=== PATIENT | male | born 1975 | race Two or more races ===

== ENCOUNTER 2020-07-10 18:41 | Inpatient (IN) | payer BC ==
[~2020-07-10] VITALS: Ht 175.3 cm; Wt 83.1 kg
[2020-07-10] MEDS ORDERED: propofol 1000mg/100ml bottle 100 ML IV ONE (18:46)
--- NOTE | 2020-07-10 19:10 | NUR ---
CALLED [facility] AND THEY STATE PT HAS NO ALLERGIES.
[2020-07-10 19:15] LABS: ABG BASE EXCESS 4.7 mmol/L (-2.0-2.0); ABG HCO3 31.6 mmol/L (22.0-26.0); ABG PCO2 (T) 56.9 mmHg (35.0-48.0); ABG PO2 (T) 66.2 mmHg (75.0-100.0); ALLEN'S TEST POSITIVE; FCOHb 0.4 % (0.0-3.9); FMetHb 0.3 % (0.0-1.5); FO2Hb 91.4 % (94-97); PEEP 9 cm H2O; RESPIRATORY RATE 16 b/min; TOTAL HEMOGLOBIN 13.2 G/dl (14.0-18.0)
[2020-07-10] MEDS ORDERED: propofol 1000mg/100ml bottle 100 ML IV SCH (19:15)
[2020-07-10] MEDS ORDERED: iohexol 350MG/ML 100ml bottle IV ONE (19:16)
[2020-07-10 19:22] LABS: BASOPHILS # (AUTO) 0.2 X10'3 (0-0.2); EOSINOPHILS # (AUTO) 0.1 X10'3 (0-0.9); EOSINOPHILS % (AUTO) 0.5 % (0-6); HEMATOCRIT 37.2 % (42.0-52.0); HEMOGLOBIN 12.5 g/dl (14.0-17.9); LYMPHOCYTES # (AUTO) 0.7 X10'3 (1.1-4.8); LYMPHOCYTES % (AUTO) 4.2 % (21-51); MEAN CORPUSCULAR HEMOGLOBIN 31.1 PG (27.0-31.0); MEAN CORPUSCULAR HGB CONC 33.5 g/dL (33.0-36.5); MEAN CORPUSCULAR VOLUME 92.9 FL (78-98); MEAN PLATELET VOLUME 7.5 FL (7.4-10.4); MONOCYTES # (AUTO) 0.8 X10'3 (0-0.9); MONOCYTES % (AUTO) 5.1 % (2-12); NEUTROPHILS # (AUTO) 14.3 X10'3 (1.8-7.7); NEUTROPHILS % (AUTO) 89.2 % (42-75); PLATELET COUNT 272 X10'3 (140-440); RED BLOOD COUNT 4.01 X10'6 (4.70-6.10); RED CELL DISTRIBUTION WIDTH 12.8 % (11.5-14.5); WHITE BLOOD COUNT 16.1 X10'3 (4.5-11.0)
--- NOTE | 2020-07-10 19:30 | NUR ---
NG TUBE PLACEMENT CHECKED BY AIR AUSCULTATION. POSITIVE PLACEMENT. NG TUBE SECURED.
[2020-07-10 19:40] LABS: ALANINE AMINOTRANSFERASE 47 U/L (12-78); ALBUMIN 2.6 G/DL (3.4-5.0); ALBUMIN/GLOBULIN RATIO 0.5 (1.1-1.5); ALKALINE PHOSPHATASE 109 IU/L (46-116); ANION GAP 6 (8-16); ASPARTATE AMINO TRANSFERASE 25 U/L (10-37); BILIRUBIN,TOTAL 0.3 MG/DL (0.1-1.0); BLOOD UREA NITROGEN 12 MG/DL (7-18); BUN/CREATININE RATIO 16.7 (5.4-32.0); CALCIUM 8.4 MG/DL (8.5-10.1); CHLORIDE 97 MMOL/L (99-107); CREATININE 0.72 MG/DL (0.60-1.10); GLUCOSE 161 MG/DL (70-104); POTASSIUM 3.6 MMOL/L (3.5-5.1); SODIUM 138 MMOL/L (135-145); TOTAL CARBON DIOXIDE 35.1 MMOL/L (24-32); eGFR > 90 ML/MIN
[2020-07-10] MEDS ORDERED: acetaminophen 325mg rectal suppository RC ONE (19:40)
--- NOTE | 2020-07-10 19:45 | NUR ---
PATIENT TO CT WITH RN, RESPIRATORY, MANAGER RETAIL STORE AND BP, HR, SPO2 MONITORING.
--- NOTE | 2020-07-10 19:56 | NUR ---
med dose corrected with pharmacy for tylenol. corrected order 325mg.
[2020-07-10] MEDS ORDERED: magnesium hydroxide 30ml (MOM) UD suspension PO PRN (20:00)
[2020-07-10] MEDS ORDERED: ondansetron/PF 4mg/2ml inj IV PRN (20:00)
[2020-07-10] MEDS ORDERED: mag hydrox/Alum hydrox/simeth 30ml oral suspension PO PRN (20:00)
--- NOTE | 2020-07-10 20:06 | NUR ---
PT JUST RETURNED FROM CTA OF CHEST AND ABD AND PELVIS. BLADDER TEMP 102.4, DR. GALVAN AWARE AND ORDERING TYLENOL RECTAL.
[2020-07-10 20:12] LABS: CLARITY,URINE CLEAR (Clear); COLOR,URINE GREEN (Yellow); GLUCOSE, URINE NEGATIVE (Neg); KETONES,URINE 40 mg/dl (Neg); LEUKOCYTE ESTERASE ,URINE TRACE (Neg); NITRITES, URINE NEGATIVE (Neg); OCCULT BLOOD,URINE LARGE (Neg); PROTEIN,URINE 30 mg/dl (Neg); UROBILINOGEN,URINE 0.2 E.U/dL (0.2-1.0)
[2020-07-10 20:23] LABS: UA COLLECTION TYPE NON-SPECIFIED
[2020-07-10] MEDS ORDERED: potassium Cl 20 mEq SR tablet PO PRN ×2 (20:25)
[2020-07-10] MEDS ORDERED: potassium CL 10mEq/100ml bag 100 ML IV PRN ×2 (20:25)
[2020-07-10 20:28] LABS: URINE AMPHETAMINE SCREEN NEGATIVE (Neg); URINE BARBITUATE SCREEN NEGATIVE (Neg); URINE BENZODIAZEPINES SCREEN POSITIVE (Neg); URINE CANNABINOID SCREEN NEGATIVE (Neg); URINE COCAINE SCREEN NEGATIVE (Neg); URINE METHADONE SCREEN POSITIVE (Neg); URINE OPIATE SCREEN NEGATIVE (Neg); URINE PHENCYCLIDINE SCREEN NEGATIVE (Neg)
[2020-07-10 20:30] LABS: SQUAMOUS EPITHELIAL CELL,UR FEW /LPF (FEW)
[2020-07-10 20:31] LABS: BACTERIA,URINE 1+ /HPF (Neg); RBC,URINE TNTC /HPF (0-2)
[2020-07-10] MEDS ORDERED: METH5TAB2 PO (20:32)
[2020-07-10] MEDS ORDERED: CHLO10CA6 GT (20:32)
[2020-07-10] MEDS ORDERED: ALBU8.5H8 IH (20:32)
[2020-07-10] MEDS ORDERED: INSU100V9 SQ (20:32)
[2020-07-10] MEDS ORDERED: NYST1000 PO (20:32)
[2020-07-10] MEDS ORDERED: DEXA1TAB GT (20:32)
[2020-07-10] MEDS ORDERED: INSU100C10 SQ (20:32)
[2020-07-10] MEDS ORDERED: FENT50VI IV (20:32)
[2020-07-10] MEDS ORDERED: FAMO20TA8 PO (20:32)
[2020-07-10] MEDS ORDERED: ASPI-1265 PO (20:32)
[2020-07-10] MEDS ORDERED: OXYC5CAP19 PO (20:32)
[2020-07-10] MEDS ORDERED: PROP10VI (20:32)
[2020-07-10] MEDS ORDERED: DEXM400I (20:32)
[2020-07-10] MEDS ORDERED: ENOX40SY7 SUBCUT (20:32)
[2020-07-10] MEDS ORDERED: ATRIN IH (20:32)
[2020-07-10] MEDS ORDERED: APR20I IV (20:32)
[2020-07-10] MEDS ORDERED: CYCL-1 PO (20:32)
[2020-07-10] MEDS ORDERED: OXYC10TA47 PO (20:32)
[2020-07-10] MEDS ORDERED: DOCU-195 PO (20:32)
[2020-07-10] MEDS ORDERED: ZINC220C11 PO (20:32)
[2020-07-10] MEDS: DEXMEDETOMIDINE 400MCG in NORMAL SALINE 100ml IV SCH (20:55)
[2020-07-10] MEDS: vancomycin 125mg/5ml ORAL solution 5ml UD bottle PO SCH (20:58)
[2020-07-10] MEDS: normal saline 1000ml 1,000 ML IV SCH (21:00)
[2020-07-10] MEDS: FENTANYL-0.9 % NACL/PF 100 ML IV PRN (21:20)
[2020-07-10] MEDS: midazolam 2 mg/2 ml injection IV PRN (21:22)
--- NOTE | 2020-07-10 21:23 | NUR ---
PER TRANSFER PAPERWORK: COVID + ON 06/01, COVID CLEAR ON 06/23/20 PSEUDAMONAS PNEUMONIA. AT FACILITY ON PROPOFOL, PRECEDEX DRIP, WITH FENT AND VERSED IVP. NG TUBE FEEDING VITAL AT 40. OXY IR METHADONE, ZOFRAN, HYDRALAZINE IVP MECH VENT 70% BP AT FACILITY 200/117, HR 144, OXYGEN 92%
--- NOTE | 2020-07-10 21:38 | NUR ---
1000MCG FENTANYL DRIP AND 2MG VERSED PUSH PULLED AND GIVEN TO PRIMARY RN - PRIMARY RN UNABLE TO PULL MEDICATION SECONDARY TO ISOLATION PRECAUTIONS.
--- NOTE | 2020-07-10 21:48 | NUR ---
talked with Savana about inability to sedate patient adequately. Discussed current medications with md, including precedex at 0.6 mcg/kg/hr, propofol 75 mcg/kg/min which he arrived at, fentanyl drip, and versed bolus. per md, continue current drips and add versed drip and titrate.
[2020-07-10 22:09] LABS: TOTAL CELLS COUNTED 100
[2020-07-10] MEDS: midazolam 100mg in NS 100ml 100 ML IV PRN (22:10)
[2020-07-10] MEDS: propofol 1000mg/100ml bottle 100 ML IV SCH ×2 (22:15→23:11)
--- NOTE | 2020-07-10 22:16 | NUR ---
PT STARTED ON VERSED GTT AT 5 MCG, PT CONTINUES ON PROPOFOL GTT AT 75 MCG/KG/MIN. PT HAS BEEN AWAKENING AND OPENING EYES AND MOVING LIMBS, GIVEN A 2ND DOSE OF VERSED 2 MG IV JUST PRIOR TO STARTING VERSED GTT AND PT NOW CALM. BP 111/75, CONTINUES WITH TACHYCARDIA 120-125, ST, NO ECTOPY. TRACH SUCTIONED AND MINIMAL OUTPUT, BUT RIGHT UPPER LUNG WITH IMPROVEMENT IN COARSE BREATH SOUNDS. VENT RR AT 16, FIO2 60%, PEEP 9, PT HAS BEEN OVERBREATING THE VENT THE ENTIRETY OF HIS STAY HERE. OVERBREATING AT 30-34 MIN . OTHER DRIPS: FENTANYL, PRECEDEX, NS AT 100
--- NOTE | 2020-07-10 23:45 | NUR ---
REPORT GIVEN TO MILADIS RUIZ CICU. IPA [id number].
[2020-07-11] VITALS (32 sets, daily range): BP systolic 82–131; BP diastolic 45–78
--- NOTE | 2020-07-11 | NUR ---
Patient in room CICU 2008. I have received report from young duffy and had the opportunity to ask questions and assume patient care.
[2020-07-11] MEDS: metroNIDAZOLE-Flagyl 500mg/NS 100 ML IV SCH ×2 (00:46→07:26)
--- NOTE | 2020-07-11 01:00 | NUR ---
pt had a fever of 38.5 on arrival to icu. pt given Tylenol in the er. pt room temp turned down, fan in pt room, ice packs placed at pt neck, armpits, and groin.
[2020-07-11 01:11] LABS: PLATELET ESTIMATE NORMAL
[2020-07-11 01:17] LABS: LARGE PLATELETS FEW; POLYCHROMASIA FEW; SPHEROCYTES FEW; STOMATOCYTES 1+
[2020-07-11] MEDS: propofol 1000mg/100ml bottle 100 ML IV SCH ×4 (01:28→20:47)
[2020-07-11] MEDS ORDERED: methylPREDNISolone sod succ 125mg/2ml vial IV ONE (02:00)
[2020-07-11] MEDS: vancomycin 125mg/5ml ORAL solution 5ml UD bottle PO SCH ×4 (02:18→20:47)
[2020-07-11 03:06] LABS: BASOPHILS # (AUTO) 0.1 X10'3 (0-0.2); BASOPHILS % (AUTO) 0.4 % (0-1); EOSINOPHILS # (AUTO) 0.1 X10'3 (0-0.9); EOSINOPHILS % (AUTO) 0.6 % (0-6); HEMOGLOBIN 11.3 g/dl (14.0-17.9); LYMPHOCYTES # (AUTO) 1.4 X10'3 (1.1-4.8); LYMPHOCYTES % (AUTO) 8.1 % (21-51); MEAN CORPUSCULAR HEMOGLOBIN 31.2 PG (27.0-31.0); MEAN CORPUSCULAR HGB CONC 33.2 g/dL (33.0-36.5); MEAN PLATELET VOLUME 7.9 FL (7.4-10.4); MONOCYTES # (AUTO) 1.1 X10'3 (0-0.9); MONOCYTES % (AUTO) 6.2 % (2-12); NEUTROPHILS # (AUTO) 15.1 X10'3 (1.8-7.7); NEUTROPHILS % (AUTO) 84.7 % (42-75); PLATELET COUNT 248 X10'3 (140-440); RED BLOOD COUNT 3.62 X10'6 (4.70-6.10); RED CELL DISTRIBUTION WIDTH 12.8 % (11.5-14.5); WHITE BLOOD COUNT 17.9 X10'3 (4.5-11.0)
[2020-07-11 03:26] LABS: ABG BASE EXCESS 3.3 mmol/L (-2.0-2.0); ABG HCO3 31.3 mmol/L (22.0-26.0); ABG OXYGEN SATURATION 90.1 % (94-97); ABG PCO2 (T) 67.9 mmHg (35.0-48.0); ABG PO2 (T) 66.5 mmHg (75.0-100.0); FCOHb 0.2 % (0.0-3.9); FMetHb 0.2 % (0.0-1.5); FO2Hb 89.7 % (94-97); PATIENT TEMPERATURE 38.1; PEEP 9 cm H2O; RESPIRATORY RATE 16 b/min; TOTAL HEMOGLOBIN 12.3 G/dl (14.0-18.0)
[2020-07-11 03:29] LABS: ALBUMIN 2.3 G/DL (3.4-5.0); ANION GAP 5 (8-16); BLOOD UREA NITROGEN 9 MG/DL (7-18); BUN/CREATININE RATIO 16.1 (5.4-32.0); CALCIUM 8.3 MG/DL (8.5-10.1); CHLORIDE 98 MMOL/L (99-107); CREATININE 0.56 MG/DL (0.60-1.10); GLUCOSE 114 MG/DL (70-104); MAGNESIUM 1.6 MG/DL (1.5-2.4); POTASSIUM 4.5 MMOL/L (3.5-5.1); SODIUM 137 MMOL/L (135-145); TOTAL CARBON DIOXIDE 34.2 MMOL/L (24-32); TRIGLYCERIDES 225 MG/DL (20-135); eGFR > 90 ML/MIN
[2020-07-11] MEDS: acetaminophen 325mg tablet PO PRN (04:39)
[2020-07-11] MEDS: DEXMEDETOMIDINE 400MCG in NORMAL SALINE 100ml IV SCH ×2 (05:57→11:26)
[2020-07-11] MEDS: normal saline 1000ml 1,000 ML IV SCH (06:00)
--- NOTE | 2020-07-11 06:13 | NUR ---
Problems reprioritized. Patient report given, questions answered & plan of care reviewed
[2020-07-11] MEDS: pantoprazole 40 MG vial IV SCH (07:25)
[2020-07-11] MEDS: FENTANYL-0.9 % NACL/PF 100 ML IV PRN (07:25)
[2020-07-11] MEDS: enoxaparin 40mg/0.4ml syringe SUBCUT SCH (07:26)
[2020-07-11] MEDS: K and/or MAG REPLACEMENT MC SCH ×2 (08:00→20:00)
[2020-07-11] MEDS ORDERED: HYDROmorphone 1 mg/ml syringe IV PRN (09:05)
[2020-07-11] MEDS ORDERED: furosemide 40mg/4ml inj IV ONE (09:15)
[2020-07-11] MEDS ORDERED: albuterol 2.5 MG/3 ML nebule CONTNEB ONE (09:45)
[2020-07-11] MEDS: linezolid 600mg/300ml PREMIX 300 ML IV SCH ×2 (09:57→20:48)
[2020-07-11] MEDS: meropenem inj 1 GM in normal saline 100ml IV soln 100 ML IV SCH ×2 (09:57→16:30)
[2020-07-11] MEDS: NORepinephrine 8mg/ 250ml NS 250 ML IV SCH (09:59)
[2020-07-11] MEDS ORDERED: cyclobenzaprine 10mg tablet PO PRN (11:20)
[2020-07-11] MEDS ORDERED: ALBUTEROL INHALER 1 PUFF/90 MCG INHALER IH PRN (11:20)
[2020-07-11] MEDS ORDERED: ipratropium/albuterol 3ml nebule NEB PRN (11:20)
[2020-07-11] MEDS ORDERED: albuterol 2.5 MG/3 ML nebule NEB SCH (12:00)
[2020-07-11] MEDS ORDERED: non-formulary drug (Insulin Lispro (Humalog) 1 UNITS) SQ SCH (12:00)
[2020-07-11] MEDS ORDERED: dextrose 50%-water 50ml dispensing syringe IV PRN ×2 (14:15)
[2020-07-11] MEDS ORDERED: MESSAGE TO PHARMACY PO ONE (14:15)
[2020-07-11] MEDS ORDERED: glucagon, human recombinant 1mg kit SUBCUT PRN (14:15)
[2020-07-11] MEDS ORDERED: dextrose ORAL solution 15 GM/59 ML bottle PO PRN ×2 (14:15)
--- NOTE | 2020-07-11 14:36 | NUR ---
TF consult: Pt admit with sepsis and respiratory failure d/t ARDS d/t COVID. Pt mechanically ventilated with a trach, on rotobed. TF recommendations below. Pt to get diuretics per MD note, no water flush recommendations at this time. Pt receiving Linezolid, low tyramine nutrition therapy education not appropriate at this time. Per PMH pt with new dx T2DM in 2019, pending A1c results at this time. BG range 111-161 since admit. LBM 07/11 documented as a smear, pt receiving routine bowel care. Will continue to follow closely. Recommendations: 1) Continuous Vital AF via NG tube with goal rate of 80 mL/hr. To begin at 20 mL/hr and advance by 20 mL Q8H as tolerated to goal rate. To provide: 1920 mL total volume/day, 2304 kcal, 144 g protein, and 1557 mL water 2) No water flush recommendations at this time 3) Prealbumin q Tuesday/ 4) Daily weights 5) Consider post-pyloric feedings given pt on rotobed if poor TF tolerance 6) Routine bowel care 7) Low tyramine nutrition therapy education once stable if warranted 8) DM education pending A1c results if warranted Addendum: 07/11/20 at [address] Amended: Links added.
[2020-07-11] MEDS: nystatin 500,000 unit/5ML UD oral suspension PO SCH ×3 (14:48→22:45)
[2020-07-11] MEDS: methylPREDNISolone sod succ 125mg/2ml vial IV SCH ×2 (14:49→20:48)
[2020-07-11] MEDS ORDERED: MEROPENEM 1GM/NS 50ML IVPB 50 ML IV SCH (16:00)
[2020-07-11] MEDS: methadone 5mg tablet PO SCH (16:30)
[2020-07-11] MEDS: midazolam 100mg in NS 100ml 100 ML IV PRN (16:34)
[2020-07-11] MEDS: dexmedetomidine/D5W 100mL 100 ML IV SCH ×2 (17:09→20:51)
--- NOTE | 2020-07-11 17:45 | NUR ---
I have reviewed and agree with all medications administered and interventions performed by DRIER TENDER Student Panda Ziegler.
--- NOTE | 2020-07-11 18:15 | NUR ---
Patient in room CICU 2008. I have received report from LENARD RUIZ and had the opportunity to ask questions and assume patient care.
--- NOTE | 2020-07-11 19:45 | NUR ---
PT MOVED TO THE ROTOPRONE BED
[2020-07-11] MEDS: ipratropium/albuterol 3ml nebule NEB SCH ×2 (19:46→23:00)
[2020-07-11] MEDS ORDERED: docusate sod 100mg capsule PO SCH (20:00)
[2020-07-11] MEDS ORDERED: famotidine 20mg tablet PO SCH (20:00)
[2020-07-11] MEDS: mineral oil/petrolatum ophthal oint EACHEYE SCH ×2 (20:00→20:48)
[2020-07-11] MEDS: chlordiazePOXIDE 5mg capsule PO SCH (20:47)
[2020-07-11 20:58] LABS: HEMOGLOBIN A1C 7.4 % (4.5-6.2)
[2020-07-11] MEDS ORDERED: insulin glargine (Lantus) pen - multi-dose SQ SCH (21:00)
[2020-07-11] MEDS: insulin regular, human U-100 3ml vial - multi-dose SQ SCH (21:06)
[2020-07-11] MEDS: insulin glargine (Lantus) pen - multi-dose SQ SCH (21:07)
--- NOTE | 2020-07-11 22:30 | NUR ---
pt removed from cdiff isolation precautions by . pt has not had a bm.
[2020-07-12] VITALS (24 sets, daily range): BP systolic 96–146; BP diastolic 53–98
[2020-07-12] MEDS: methadone 5mg tablet PO SCH ×2 (00:30→07:14)
[2020-07-12] MEDS: methylPREDNISolone sod succ 125mg/2ml vial IV SCH ×4 (01:55→19:06)
[2020-07-12] MEDS: midazolam 100mg in NS 100ml 100 ML IV PRN ×6 (01:55→23:38)
[2020-07-12] MEDS: mineral oil/petrolatum ophthal oint EACHEYE SCH ×7 (01:56→19:05)
[2020-07-12] MEDS: propofol 1000mg/100ml bottle 100 ML IV SCH ×4 (01:56→14:19)
[2020-07-12] MEDS: insulin regular, human U-100 3ml vial - multi-dose SQ SCH ×4 (02:04→19:30)
[2020-07-12 02:50] LABS: ABG BASE EXCESS 7.5 mmol/L (-2.0-2.0); ABG HCO3 35.3 mmol/L (22.0-26.0); ABG OXYGEN SATURATION 95.9 % (94-97); ABG PCO2 (T) 68.6 mmHg (35.0-48.0); ALLEN'S TEST POSITIVE; FCOHb 0.3 % (0.0-3.9); FMetHb 0.4 % (0.0-1.5); FO2Hb 95.2 % (94-97); PATIENT TEMPERATURE 37.2; RESPIRATORY RATE 18 b/min; TOTAL HEMOGLOBIN 11.4 G/dl (14.0-18.0)
[2020-07-12] MEDS: ipratropium/albuterol 3ml nebule NEB SCH ×6 (02:51→23:07)
[2020-07-12 03:04] LABS: BASOPHILS % (AUTO) 0 % (0-1); EOSINOPHILS % (AUTO) 0 % (0-6); HEMATOCRIT 32.4 % (42.0-52.0); HEMOGLOBIN 10.7 g/dl (14.0-17.9); LYMPHOCYTES # (AUTO) 0.8 X10'3 (1.1-4.8); LYMPHOCYTES % (AUTO) 5.8 % (21-51); MEAN CORPUSCULAR HEMOGLOBIN 30.7 PG (27.0-31.0); MEAN PLATELET VOLUME 7.8 FL (7.4-10.4); MONOCYTES # (AUTO) 0.5 X10'3 (0-0.9); MONOCYTES % (AUTO) 3.7 % (2-12); NEUTROPHILS # (AUTO) 11.7 X10'3 (1.8-7.7); NEUTROPHILS % (AUTO) 90.5 % (42-75); PLATELET COUNT 251 X10'3 (140-440); RED BLOOD COUNT 3.48 X10'6 (4.70-6.10); RED CELL DISTRIBUTION WIDTH 12.8 % (11.5-14.5); WHITE BLOOD COUNT 12.9 X10'3 (4.5-11.0)
[2020-07-12 03:26] LABS: ALBUMIN 2.2 G/DL (3.4-5.0); ANION GAP -2 (8-16); BLOOD UREA NITROGEN 8 MG/DL (7-18); BUN/CREATININE RATIO 15.7 (5.4-32.0); CALCIUM 8.5 MG/DL (8.5-10.1); CHLORIDE 102 MMOL/L (99-107); CREATININE 0.51 MG/DL (0.60-1.10); GLUCOSE 223 MG/DL (70-104); POTASSIUM 4.5 MMOL/L (3.5-5.1); SODIUM 138 MMOL/L (135-145); TOTAL CARBON DIOXIDE 37.8 MMOL/L (24-32); eGFR > 90 ML/MIN
[2020-07-12] MEDS: dexmedetomidine/D5W 100mL 100 ML IV SCH ×7 (05:19→23:38)
[2020-07-12] MEDS: nystatin 500,000 unit/5ML UD oral suspension PO SCH ×5 (05:21→21:03)
[2020-07-12] MEDS: chlordiazePOXIDE 5mg capsule PO SCH ×2 (07:14→20:47)
[2020-07-12] MEDS: docusate sodium 100mg/10ml UD cup OGT SCH ×2 (07:14→19:06)
[2020-07-12] MEDS: dexamethasone 1mg tablet PO SCH (07:14)
[2020-07-12] MEDS: zinc sulfate 220mg capsule PO SCH (07:14)
[2020-07-12] MEDS: ciprofloxacin 250mg tablet NG SCH ×2 (07:15→19:06)
[2020-07-12] MEDS: aspirin 81mg tab.chew PO SCH (07:15)
[2020-07-12] MEDS: enoxaparin 40mg/0.4ml syringe SUBCUT SCH (07:16)
[2020-07-12] MEDS: linezolid 600mg/300ml PREMIX 300 ML IV SCH (07:16)
[2020-07-12] MEDS: pantoprazole 40 MG vial IV SCH (07:16)
[2020-07-12 07:32] LABS: HIV ANTIBODY 1&2 RAPID NON-REACTIVE (Neg)
[2020-07-12] MEDS: K and/or MAG REPLACEMENT MC SCH ×2 (08:00→18:35)
[2020-07-12] MEDS ORDERED: enoxaparin 40mg/0.4ml syringe SUBCUT SCH (08:00)
--- NOTE | 2020-07-12 09:00 | NUR ---
Dr. Reyes rounding on patient. Aware we are starting Nimbex drip and aware of low tidal volumes around 300. also okay with pCO2 in the 60s. Will continue supportive care with roto-prone.
[2020-07-12] MEDS: CISatracurium besylate inj. 100 MG in normal saline 100ml IV soln 90 ML IV PRN ×4 (09:34→21:49)
--- NOTE | 2020-07-12 09:41 | NUR ---
Pt with A1c 7.4%, DM education deferred at this time as pt remains mechanically ventilated. Will continue to follow. Addendum: 07/12/20 at [address] Amended: Links added.
[2020-07-12] MEDS ORDERED: ondansetron 4mg rapidly disintigrating tab PO PRN (11:40)
[2020-07-12] MEDS ORDERED: vancomycin/NS ADD-VANTAGE 1,000 MG/250 ML BAG IV SCH (13:30)
[2020-07-12] MEDS: vancomycin/NS 1 GM ADD-VANTAGE 250 ML IV SCH ×2 (14:10→21:03)
[2020-07-12] MEDS: FENTANYL-0.9 % NACL/PF 100 ML IV PRN (14:10)
[2020-07-12] MEDS: NORepinephrine 8mg/ 250ml NS 250 ML IV SCH (15:27)
--- NOTE | 2020-07-12 18:09 | NUR ---
Problems reprioritized. Patient report given, questions answered & plan of care reviewed with Rcah RUIZ.
--- NOTE | 2020-07-12 18:10 | NUR ---
Patient in room CICU 2008. I have received report from prisca duffy and had the opportunity to ask questions and assume patient care.
[2020-07-12] MEDS: lactobacillus rhamnosus 10,000 MMU CELLS/CAPSULE NG SCH (19:06)
[2020-07-12] MEDS: insulin glargine (Lantus) pen - multi-dose SQ SCH (20:48)
--- NOTE | 2020-07-12 21:00 | NUR ---
rotoprone weighs pt at 126.4 kg which is a discrepancy to the [place] bed.
--- NOTE | 2020-07-12 22:38 | NUR ---
pt has BIS monitor on. Changed leads on BIS monitor. BIS monitor says wrong sensor type. only one type of sensor for BIS monitor in hospital and same sensor that was just changed out. BIS monitor not functioning properly. will continue to monitor
[2020-07-13] VITALS (23 sets, daily range): BP systolic 93–181; BP diastolic 48–105
[2020-07-13] MEDS: FENTANYL-0.9 % NACL/PF 100 ML IV PRN ×3 (00:23→22:52)
[2020-07-13] MEDS: methylPREDNISolone sod succ 125mg/2ml vial IV SCH ×4 (01:11→19:08)
[2020-07-13] MEDS: mineral oil/petrolatum ophthal oint EACHEYE SCH ×4 (01:11→19:08)
[2020-07-13] MEDS: insulin regular, human U-100 3ml vial - multi-dose SQ SCH ×4 (01:16→21:26)
[2020-07-13] MEDS: dexmedetomidine/D5W 100mL 100 ML IV SCH ×5 (02:19→23:36)
[2020-07-13] MEDS: midazolam 100mg in NS 100ml 100 ML IV PRN ×5 (02:20→23:56)
[2020-07-13] MEDS: CISatracurium besylate inj. 100 MG in normal saline 100ml IV soln 90 ML IV PRN ×7 (03:03→23:01)
[2020-07-13 03:10] LABS: BASOPHILS % (AUTO) 0 % (0-1); EOSINOPHILS % (AUTO) 0 % (0-6); HEMATOCRIT 30.9 % (42.0-52.0); HEMOGLOBIN 9.7 g/dl (14.0-17.9); LYMPHOCYTES # (AUTO) 0.8 X10'3 (1.1-4.8); LYMPHOCYTES % (AUTO) 5.7 % (21-51); MEAN CORPUSCULAR HEMOGLOBIN 30.4 PG (27.0-31.0); MEAN CORPUSCULAR HGB CONC 31.4 g/dL (33.0-36.5); MEAN CORPUSCULAR VOLUME 96.6 FL (78-98); MEAN PLATELET VOLUME 8.4 FL (7.4-10.4); MONOCYTES # (AUTO) 0.7 X10'3 (0-0.9); MONOCYTES % (AUTO) 5.3 % (2-12); NEUTROPHILS # (AUTO) 12.1 X10'3 (1.8-7.7); PLATELET COUNT 178 X10'3 (140-440); RED CELL DISTRIBUTION WIDTH 12.7 % (11.5-14.5); WHITE BLOOD COUNT 13.6 X10'3 (4.5-11.0)
[2020-07-13 03:14] LABS: ALBUMIN 2.2 G/DL (3.4-5.0); ANION GAP -3 (8-16); BLOOD UREA NITROGEN 11 MG/DL (7-18); BUN/CREATININE RATIO 22.9 (5.4-32.0); CALCIUM 7.8 MG/DL (8.5-10.1); CHLORIDE 103 MMOL/L (99-107); CREATININE 0.48 MG/DL (0.60-1.10); GLUCOSE 180 MG/DL (70-104); MAGNESIUM 2.1 MG/DL (1.5-2.4); POTASSIUM 4.9 MMOL/L (3.5-5.1); SODIUM 143 MMOL/L (135-145); eGFR > 90 ML/MIN
[2020-07-13 03:33] LABS: TOTAL CARBON DIOXIDE 42.7 MMOL/L (24-32)
[2020-07-13] MEDS: ipratropium/albuterol 3ml nebule NEB SCH ×6 (03:34→23:10)
[2020-07-13] MEDS: vancomycin/NS 1 GM ADD-VANTAGE 250 ML IV SCH ×3 (04:42→19:08)
[2020-07-13] MEDS: nystatin 500,000 unit/5ML UD oral suspension PO SCH ×5 (05:33→21:27)
[2020-07-13 06:20] LABS: ABG BASE EXCESS 11.5 mmol/L (-2.0-2.0); ABG HCO3 44.9 mmol/L (22.0-26.0); ABG OXYGEN SATURATION 97.4 % (94-97); ABG PCO2 (T) 138.9 mmHg (35.0-48.0); ABG PO2 (T) 101.7 mmHg (75.0-100.0); ALLEN'S TEST POSITIVE; FCOHb 0.3 % (0.0-3.9); FMetHb 0.3 % (0.0-1.5); FO2Hb 96.8 % (94-97); PATIENT TEMPERATURE 36.5; PEEP 10 cm H2O; RESPIRATORY RATE 18 b/min; TOTAL HEMOGLOBIN 10.9 G/dl (14.0-18.0)
--- NOTE | 2020-07-13 06:30 | NUR ---
Patient in room CICU 2008. I have received report from SARA Loyd and had the opportunity to ask questions and assume patient care.
[2020-07-13] MEDS: pantoprazole 40 MG vial IV SCH (07:33)
[2020-07-13] MEDS: zinc sulfate 220mg capsule PO SCH (07:34)
[2020-07-13] MEDS: ciprofloxacin 250mg tablet NG SCH ×2 (07:34→19:08)
[2020-07-13] MEDS: aspirin 81mg tab.chew PO SCH (07:34)
[2020-07-13] MEDS: chlordiazePOXIDE 5mg capsule PO SCH ×2 (07:34→19:09)
[2020-07-13] MEDS: lactobacillus rhamnosus 10,000 MMU CELLS/CAPSULE NG SCH ×2 (07:34→19:09)
[2020-07-13] MEDS: docusate sodium 100mg/10ml UD cup OGT SCH ×2 (07:35→19:10)
[2020-07-13] MEDS: enoxaparin 40mg/0.4ml syringe SUBCUT SCH (07:35)
[2020-07-13] MEDS: dexamethasone 1mg tablet PO SCH (07:40)
[2020-07-13] MEDS: K and/or MAG REPLACEMENT MC SCH ×2 (08:51→19:10)
[2020-07-13 12:15] LABS: ABG BASE EXCESS 15.5 mmol/L (-2.0-2.0); ABG HCO3 44.9 mmol/L (22.0-26.0); ABG OXYGEN SATURATION 97.9 % (94-97); ABG PCO2 (T) 88.8 mmHg (35.0-48.0); ABG PO2 (T) 100.8 mmHg (75.0-100.0); FCOHb 0.3 % (0.0-3.9); FMetHb 0.3 % (0.0-1.5); FO2Hb 97.3 % (94-97); PEEP 10 cm H2O; RESPIRATORY RATE 24 b/min; TIDAL VOLUME 400 mL
--- NOTE | 2020-07-13 12:37 | NUR ---
Alf Consult: Alf 10; skin intact. Pt tolerating TF at goal GRV WNL. LBM 07/11; smear receiving routine colace. Noted 37.3kg wt gain past 24 hours likely error on rotoprone bed; FRANKLIN d/w clinical pharmacist in case receiving wt-based meds. Written DM ed w/ RD contact information placed in pt chart since not appropriate for ed at this time. Zyvox has been stopped per MD note. Will continue to monitor. Recommendations: 1) Continuous Vital AF via NG tube with goal rate of 80 mL/hr. To begin at 20 mL/hr and advance by 20 mL Q8H as tolerated to goal rate. To provide: 1920 mL total volume/day, 2304 kcal, 144 g protein, and 1557 mL water 2) additional water flush per wax pourer 3) Prealbumin q Tuesday/; Daily weights 4) Consider post-pyloric feedings given pt on rotoprone if poor TF tolerance 5) Routine bowel care Addendum: 07/13/20 at [address] Amended: Links added.
[2020-07-13] MEDS ORDERED: VANCOMYCIN LEVEL IV ONE (13:00)
--- NOTE | 2020-07-13 14:30 | NUR ---
Pt unable to tolerate prone position. Getting inadequate volumes and desaturating. He is hypertensive with a bounding pulse as well. Dr Reyes called. Orders received CXR, ABG, D/C decadron. Pt to remain in supine position.
[2020-07-13 16:51] LABS: ABG BASE EXCESS 18.3 mmol/L (-2.0-2.0); ABG HCO3 49.3 mmol/L (22.0-26.0); ABG OXYGEN SATURATION 95.4 % (94-97); ABG PCO2 (T) 101.5 mmHg (35.0-48.0); ABG PO2 (T) 73.2 mmHg (75.0-100.0); ALLEN'S TEST POSITIVE; FCOHb 0.2 % (0.0-3.9); FMetHb 0.2 % (0.0-1.5); PEEP 10 cm H2O; RESPIRATORY RATE 24 b/min; TIDAL VOLUME 372 mL; TOTAL HEMOGLOBIN 12.2 G/dl (14.0-18.0)
--- NOTE | 2020-07-13 18:03 | NUR ---
Problems reprioritized. Patient report given, questions answered & plan of care reviewed with SARA Loyd.
--- NOTE | 2020-07-13 18:05 | NUR ---
Patient in room CICU 2008. I have received report from sadia duffy and had the opportunity to ask questions and assume patient care.
--- NOTE | 2020-07-13 20:30 | NUR ---
pt tolerating supine position well. spoke to applications support specialist ophelia about trying to prone pt because pt was not tolerating it on day shift to see if there is an improvement. applications support specialist approved to prone pt
[2020-07-13] MEDS: niCARDipine-NS 40mg/200ml IVPB 250 ML IV SCH (20:33)
--- NOTE | 2020-07-13 21:00 | NUR ---
pt placed in prone position, sedation increased, pt tolerating prone position at this time, will continue to monitor.
[2020-07-13] MEDS: NORepinephrine 8mg/ 250ml NS 250 ML IV SCH (21:09)
[2020-07-13] MEDS: insulin glargine (Lantus) pen - multi-dose SQ SCH (21:27)
--- NOTE | 2020-07-13 22:00 | NUR ---
pt respiratory rate increased. pt overbreathing the vent. nimbex and sedation increased. pt producing copious bloody secretions, pt suctioned. spoke to director inpatient headache program about sedation being increased, propofol restarted on pt for added sedation per protocol. will continue to monitor.
[2020-07-13] MEDS: propofol 1000mg/100ml bottle 100 ML IV SCH (22:01)
--- NOTE | 2020-07-13 22:30 | NUR ---
pt continues to be increased with nimbex on max dose, sedation increased. analytics specialist ophelia at bedside to evaluate pt. pt HR began to increased to 130's. pt no longer tolerating prone position. pt returned to supine position, HR and respiratory rate started decreasing, pt tolerating supine position. began titrating down sedation and nimbex. new order for lasix received.
--- NOTE | 2020-07-13 22:30 | NUR ---
pt tolerating supine position well. spoke to zuleyma jacinto about trying to prone pt because pt was not tolerating it on day shift to see if there is an improvement. supervisor felling bucking approved to prone pt Addendum: 07/14/20 at 0112 by Rach Goins RN error incorrect time, correct time 2030
[2020-07-13] MEDS ORDERED: furosemide 40mg/4ml inj IV ONE (22:50)
[2020-07-14] VITALS (29 sets, daily range): BP systolic 87–158; BP diastolic 51–104
[2020-07-14] MEDS: niCARDipine-NS 40mg/200ml IVPB 250 ML IV SCH ×5 (00:20→22:17)
[2020-07-14] MEDS: CISatracurium besylate inj. 100 MG in normal saline 100ml IV soln 90 ML IV PRN ×8 (01:54→22:42)
[2020-07-14] MEDS: vancomycin/NS 1 GM ADD-VANTAGE 250 ML IV SCH ×2 (02:06→07:23)
[2020-07-14] MEDS: methylPREDNISolone sod succ 125mg/2ml vial IV SCH ×4 (02:06→20:19)
[2020-07-14] MEDS: mineral oil/petrolatum ophthal oint EACHEYE SCH ×4 (02:07→20:19)
[2020-07-14] MEDS: insulin regular, human U-100 3ml vial - multi-dose SQ SCH ×4 (02:12→19:58)
[2020-07-14] MEDS: ipratropium/albuterol 3ml nebule NEB SCH ×6 (03:01→23:13)
[2020-07-14 03:14] LABS: BASOPHILS % (AUTO) 0.1 % (0-1); EOSINOPHILS % (AUTO) 0 % (0-6); HEMATOCRIT 30.7 % (42.0-52.0); HEMOGLOBIN 9.8 g/dl (14.0-17.9); LYMPHOCYTES # (AUTO) 1.3 X10'3 (1.1-4.8); LYMPHOCYTES % (AUTO) 8.7 % (21-51); MEAN CORPUSCULAR HEMOGLOBIN 30.5 PG (27.0-31.0); MEAN CORPUSCULAR HGB CONC 32.1 g/dL (33.0-36.5); MEAN CORPUSCULAR VOLUME 94.9 FL (78-98); MEAN PLATELET VOLUME 7.6 FL (7.4-10.4); MONOCYTES # (AUTO) 0.9 X10'3 (0-0.9); MONOCYTES % (AUTO) 6.1 % (2-12); NEUTROPHILS # (AUTO) 12.7 X10'3 (1.8-7.7); NEUTROPHILS % (AUTO) 85.1 % (42-75); PLATELET COUNT 241 X10'3 (140-440); RED BLOOD COUNT 3.23 X10'6 (4.70-6.10); RED CELL DISTRIBUTION WIDTH 12.7 % (11.5-14.5); WHITE BLOOD COUNT 14.9 X10'3 (4.5-11.0)
[2020-07-14 03:16] LABS: ABG BASE EXCESS 17.6 mmol/L (-2.0-2.0); ABG HCO3 44.2 mmol/L (22.0-26.0); ABG OXYGEN SATURATION 97.5 % (94-97); ABG PCO2 (T) 64.6 mmHg (35.0-48.0); ALLEN'S TEST POSITIVE; FCOHb 0.3 % (0.0-3.9); FMetHb 0.2 % (0.0-1.5); PATIENT TEMPERATURE 37.9; PEEP 10 cm H2O; RESPIRATORY RATE 28 b/min; TOTAL HEMOGLOBIN 11.9 G/dl (14.0-18.0)
[2020-07-14 03:23] LABS: ALBUMIN 2.4 G/DL (3.4-5.0); ANION GAP -2 (8-16); BLOOD UREA NITROGEN 20 MG/DL (7-18); BUN/CREATININE RATIO 32.8 (5.4-32.0); CALCIUM 8.3 MG/DL (8.5-10.1); CHLORIDE 100 MMOL/L (99-107); CREATININE 0.61 MG/DL (0.60-1.10); GLUCOSE 278 MG/DL (70-104); MAGNESIUM 2.1 MG/DL (1.5-2.4); POTASSIUM 3.7 MMOL/L (3.5-5.1); PREALBUMIN 17.4 MG/DL (19-36); SODIUM 142 MMOL/L (135-145); eGFR > 90 ML/MIN
[2020-07-14 03:24] LABS: TOTAL CARBON DIOXIDE 43.6 MMOL/L (24-32)
[2020-07-14] MEDS: FENTANYL-0.9 % NACL/PF 100 ML IV PRN ×5 (04:14→22:14)
[2020-07-14] MEDS: midazolam 100mg in NS 100ml 100 ML IV PRN ×4 (04:53→21:59)
[2020-07-14] MEDS: dexmedetomidine/D5W 100mL 100 ML IV SCH ×2 (05:17→10:53)
[2020-07-14] MEDS: nystatin 500,000 unit/5ML UD oral suspension PO SCH ×5 (05:17→22:49)
--- NOTE | 2020-07-14 06:30 | NUR ---
Patient in room CICU 2008. I have received report from SARA Loyd and had the opportunity to ask questions and assume patient care.
[2020-07-14] MEDS: ciprofloxacin 250mg tablet NG SCH ×2 (07:21→20:16)
[2020-07-14] MEDS: docusate sodium 100mg/10ml UD cup OGT SCH ×2 (07:22→20:16)
[2020-07-14] MEDS: lactobacillus rhamnosus 10,000 MMU CELLS/CAPSULE NG SCH ×2 (07:22→20:16)
[2020-07-14] MEDS: aspirin 81mg tab.chew PO SCH (07:22)
[2020-07-14] MEDS: chlordiazePOXIDE 5mg capsule PO SCH ×2 (07:22→20:19)
[2020-07-14] MEDS: zinc sulfate 220mg capsule PO SCH (07:22)
[2020-07-14] MEDS: pantoprazole 40 MG vial IV SCH (07:22)
[2020-07-14] MEDS: enoxaparin 40mg/0.4ml syringe SUBCUT SCH (07:23)
[2020-07-14] MEDS ORDERED: MESSAGE TO NURSING IV ONE (07:30)
[2020-07-14] MEDS: K and/or MAG REPLACEMENT MC SCH ×2 (08:00→20:00)
[2020-07-14] MEDS: propofol 1000mg/100ml bottle 100 ML IV SCH (08:46)
[2020-07-14] MEDS: acetaminophen 325mg tablet PO PRN ×2 (10:52→22:47)
[2020-07-14] MEDS: labetalol 20mg/4ml (5mg/ml) syringe IV PRN ×2 (16:22→23:48)
--- NOTE | 2020-07-14 16:30 | NUR ---
Pt hypertensive and tachycardic with bounding pulse. Dr. Rasmussen in to round on pt. labetolol 20 mg IVP ordered q4h prn. Lasix and aldactone added. Received instructions to try and ween pt FIO2 to 40%, keep supine.
[2020-07-14 17:20] LABS: ABG HCO3 36.5 mmol/L (22.0-26.0); ABG OXYGEN SATURATION 94.2 % (94-97); ABG PCO2 (T) 46.2 mmHg (35.0-48.0); ABG PO2 (T) 60.7 mmHg (75.0-100.0); ALLEN'S TEST POSITIVE; FCOHb 0.3 % (0.0-3.9); FMetHb 0.2 % (0.0-1.5); FO2Hb 93.7 % (94-97); PEEP 5 cm H2O; RESPIRATORY RATE 28 b/min; TIDAL VOLUME 420 mL; TOTAL HEMOGLOBIN 13.4 G/dl (14.0-18.0)
--- NOTE | 2020-07-14 17:50 | NUR ---
Ro. Nimbex not delivered paused. Nimbex line has run dry and next Nimbex bag has not been delivered.
--- NOTE | 2020-07-14 18:18 | NUR ---
Problems reprioritized. Patient report given, questions answered & plan of care reviewed with [SARA Archer].
[2020-07-14] MEDS: insulin glargine (Lantus) pen - multi-dose SQ SCH (19:55)
[2020-07-14] MEDS: spironolactone 25 MG tablet PO SCH (20:29)
[2020-07-15] VITALS (58 sets, daily range): BP systolic 93–164; BP diastolic 47–108
[2020-07-15] MEDS: CISatracurium besylate inj. 100 MG in normal saline 100ml IV soln 90 ML IV PRN ×5 (01:45→11:18)
[2020-07-15] MEDS: methylPREDNISolone sod succ 125mg/2ml vial IV SCH ×4 (02:21→20:21)
[2020-07-15 02:24] LABS: BASOPHILS # (AUTO) 0.1 X10'3 (0-0.2); BASOPHILS % (AUTO) 0.7 % (0-1); EOSINOPHILS % (AUTO) 0 % (0-6); HEMATOCRIT 33.5 % (42.0-52.0); HEMOGLOBIN 10.8 g/dl (14.0-17.9); LYMPHOCYTES # (AUTO) 1.2 X10'3 (1.1-4.8); LYMPHOCYTES % (AUTO) 8.8 % (21-51); MEAN CORPUSCULAR HEMOGLOBIN 30.1 PG (27.0-31.0); MEAN CORPUSCULAR HGB CONC 32.2 g/dL (33.0-36.5); MEAN CORPUSCULAR VOLUME 93.5 FL (78-98); MEAN PLATELET VOLUME 7.3 FL (7.4-10.4); MONOCYTES # (AUTO) 0.6 X10'3 (0-0.9); MONOCYTES % (AUTO) 4.2 % (2-12); NEUTROPHILS # (AUTO) 11.7 X10'3 (1.8-7.7); NEUTROPHILS % (AUTO) 86.3 % (42-75); PLATELET COUNT 282 X10'3 (140-440); RED BLOOD COUNT 3.58 X10'6 (4.70-6.10); WHITE BLOOD COUNT 13.6 X10'3 (4.5-11.0)
[2020-07-15 02:39] LABS: ALBUMIN 2.6 G/DL (3.4-5.0); ANION GAP 3 (8-16); BLOOD UREA NITROGEN 21 MG/DL (7-18); BUN/CREATININE RATIO 31.8 (5.4-32.0); CALCIUM 8.3 MG/DL (8.5-10.1); CHLORIDE 102 MMOL/L (99-107); CREATININE 0.66 MG/DL (0.60-1.10); GLUCOSE 277 MG/DL (70-104); MAGNESIUM 2.1 MG/DL (1.5-2.4); POTASSIUM 3.7 MMOL/L (3.5-5.1); SODIUM 141 MMOL/L (135-145); TOTAL CARBON DIOXIDE 35.9 MMOL/L (24-32); eGFR > 90 ML/MIN
[2020-07-15] MEDS: FENTANYL-0.9 % NACL/PF 100 ML IV PRN ×7 (02:39→23:23)
[2020-07-15] MEDS: insulin regular, human U-100 3ml vial - multi-dose SQ SCH ×4 (02:43→19:45)
[2020-07-15] MEDS: mineral oil/petrolatum ophthal oint EACHEYE SCH ×4 (02:44→19:27)
[2020-07-15 03:11] LABS: ABG BASE EXCESS 8.1 mmol/L (-2.0-2.0); ABG HCO3 32.7 mmol/L (22.0-26.0); ABG PCO2 (T) 47.5 mmHg (35.0-48.0); ABG PO2 (T) 70.1 mmHg (75.0-100.0); ALLEN'S TEST POSITIVE; FCOHb 0.3 % (0.0-3.9); FMetHb 0.3 % (0.0-1.5); FO2Hb 94.4 % (94-97); PATIENT TEMPERATURE 37.9; RESPIRATORY RATE 28 b/min; TOTAL HEMOGLOBIN 12.2 G/dl (14.0-18.0)
[2020-07-15] MEDS: ipratropium/albuterol 3ml nebule NEB SCH ×6 (03:35→23:02)
--- NOTE | 2020-07-15 03:45 | NUR ---
Left upper arm PICC line dressing changed. PICC line at 13cm. Line required larger tegaderm 10cm x 12 cm and central line occlusive dressing to cover length. Sterile technique observed. Bio patch applied prior to tegaderm.
[2020-07-15] MEDS: midazolam 100mg in NS 100ml 100 ML IV PRN ×4 (04:30→23:48)
[2020-07-15] MEDS: labetalol 20mg/4ml (5mg/ml) syringe IV PRN ×2 (05:54→13:14)
[2020-07-15] MEDS: nystatin 500,000 unit/5ML UD oral suspension PO SCH ×5 (06:09→22:10)
--- NOTE | 2020-07-15 06:14 | NUR ---
Problems reprioritized. Patient report given, questions answered & plan of care reviewed.
[2020-07-15] MEDS: aspirin 81mg tab.chew PO SCH (07:27)
[2020-07-15] MEDS: ciprofloxacin 250mg tablet NG SCH ×2 (07:27→19:29)
[2020-07-15] MEDS: chlordiazePOXIDE 5mg capsule PO SCH ×2 (07:27→20:21)
[2020-07-15] MEDS: spironolactone 25 MG tablet PO SCH ×2 (07:27→19:30)
[2020-07-15] MEDS: furosemide 40mg/4ml inj IV SCH (07:28)
[2020-07-15] MEDS: pantoprazole 40 MG vial IV SCH (07:28)
[2020-07-15] MEDS: docusate sodium 100mg/10ml UD cup OGT SCH ×2 (07:28→19:27)
[2020-07-15] MEDS: lactobacillus rhamnosus 10,000 MMU CELLS/CAPSULE NG SCH ×2 (07:28→19:29)
[2020-07-15] MEDS: enoxaparin 40mg/0.4ml syringe SUBCUT SCH (07:29)
[2020-07-15] MEDS: K and/or MAG REPLACEMENT MC SCH ×2 (08:00→18:55)
[2020-07-15] MEDS: propofol 1000mg/100ml bottle 100 ML IV SCH ×3 (08:42→14:44)
--- NOTE | 2020-07-15 10:59 | NUR ---
Reassessment: Pt remains intubated and tolerating TF with GRV WNL. LBM 07/13 documented as small. Pt receiving routine bowel care. Would benefit from opioid antagonist to assist with bowel regularity. Will continue to follow closely. Recommendations: 1) Continuous Vital AF via NG tube with goal rate of 80 mL/hr. To begin at 20 mL/hr and advance by 20 mL Q8H as tolerated to goal rate. To provide: 1920 mL total volume/day, 2304 kcal, 144 g protein, and 1557 mL water 2) additional water flush per c wpf developer 3) Prealbumin q Tuesday/; Daily weights 4) Consider post-pyloric feedings given pt on rotoprone if poor TF tolerance 5) Routine bowel care Addendum: 07/15/20 at [address] Amended: Links added.
[2020-07-15] MEDS: acetaminophen 325mg tablet PO PRN ×2 (16:08→21:56)
--- NOTE | 2020-07-15 18:11 | NUR ---
Patient in room CICU 2008. I have received report from Wilber RUIZ and had the opportunity to ask questions and assume patient care.Pt remains on vent via #8Shiley trach, cuffed. On A/C PC mode FIO2 45% + 10 PEEP tV 487-500. Oxygen saturation is 94%. Rhythm is sinus rhythm 96-107. Sedated on Fentanyl/propofol /versed drips. Remains supine on rotoprone bed in side to side rotational mode. [place] sump tube left nares with enteric feedings Vital AF at goal rate 80ml/hr. Left upper arm dual lumen PICC line is patent. Rectal tube with harvest brown colored loose stool. Pizano cath with scant amount of clear yellow urine along tubing.
--- NOTE | 2020-07-15 18:11 | NUR ---
Problems reprioritized. Patient report given, questions answered & plan of care reviewed with SARA Archer.
[2020-07-15] MEDS: dexmedetomidine/D5W 100mL 100 ML IV SCH (18:52)
[2020-07-15] MEDS: insulin glargine (Lantus) pen - multi-dose SQ SCH (19:43)
--- NOTE | 2020-07-15 21:30 | NUR ---
Cooling measures taken ice packs to axilla & cool wash cloth to head. Oral temp 38, bladder temp 38.4
--- NOTE | 2020-07-15 23:00 | NUR ---
Fresh ICe packs for temp. 38.4
[2020-07-16] VITALS (46 sets, daily range): BP systolic 78–144; BP diastolic 41–106
[2020-07-16] MEDS: mineral oil/petrolatum ophthal oint EACHEYE SCH ×4 (01:42→19:58)
[2020-07-16] MEDS: insulin regular, human U-100 3ml vial - multi-dose SQ SCH ×4 (01:51→20:11)
--- NOTE | 2020-07-16 02:00 | NUR ---
Ice packs changed.
[2020-07-16] MEDS: niCARDipine-NS 40mg/200ml IVPB 250 ML IV SCH ×3 (02:20→22:20)
[2020-07-16] MEDS: FENTANYL-0.9 % NACL/PF 100 ML IV PRN ×7 (02:51→23:16)
[2020-07-16] MEDS: propofol 1000mg/100ml bottle 100 ML IV SCH ×2 (02:52→22:15)
[2020-07-16] MEDS: methylPREDNISolone sod succ 125mg/2ml vial IV SCH ×4 (02:58→19:44)
[2020-07-16] MEDS: ipratropium/albuterol 3ml nebule NEB SCH ×6 (03:26→23:32)
[2020-07-16 03:41] LABS: ABG BASE EXCESS 3.5 mmol/L (-2.0-2.0); ABG HCO3 26.2 mmol/L (22.0-26.0); ABG OXYGEN SATURATION 93.8 % (94-97); ABG PCO2 (T) 35.1 mmHg (35.0-48.0); ABG PO2 (T) 66.3 mmHg (75.0-100.0); ALLEN'S TEST POSITIVE; FCOHb 0.3 % (0.0-3.9); FMetHb 0.1 % (0.0-1.5); FO2Hb 93.4 % (94-97); PATIENT TEMPERATURE 38.2; PEEP 10 cm H2O; RESPIRATORY RATE 28 b/min; TOTAL HEMOGLOBIN 12.4 G/dl (14.0-18.0)
[2020-07-16 03:42] LABS: BASOPHILS % (AUTO) 0.2 % (0-1); EOSINOPHILS % (AUTO) 0 % (0-6); HEMATOCRIT 35.7 % (42.0-52.0); HEMOGLOBIN 11.6 g/dl (14.0-17.9); LYMPHOCYTES # (AUTO) 1.6 X10'3 (1.1-4.8); LYMPHOCYTES % (AUTO) 9.9 % (21-51); MEAN CORPUSCULAR HEMOGLOBIN 30.2 PG (27.0-31.0); MEAN CORPUSCULAR HGB CONC 32.5 g/dL (33.0-36.5); MEAN CORPUSCULAR VOLUME 93.1 FL (78-98); MEAN PLATELET VOLUME 7.8 FL (7.4-10.4); MONOCYTES # (AUTO) 0.7 X10'3 (0-0.9); MONOCYTES % (AUTO) 4.5 % (2-12); NEUTROPHILS # (AUTO) 13.6 X10'3 (1.8-7.7); NEUTROPHILS % (AUTO) 85.4 % (42-75); PLATELET COUNT 320 X10'3 (140-440); RED BLOOD COUNT 3.83 X10'6 (4.70-6.10); RED CELL DISTRIBUTION WIDTH 13.3 % (11.5-14.5)
[2020-07-16 03:56] LABS: ALBUMIN 2.7 G/DL (3.4-5.0); ANION GAP 7 (8-16); BLOOD UREA NITROGEN 33 MG/DL (7-18); BUN/CREATININE RATIO 46.5 (5.4-32.0); CALCIUM 8.4 MG/DL (8.5-10.1); CHLORIDE 104 MMOL/L (99-107); CREATININE 0.71 MG/DL (0.60-1.10); GLUCOSE 321 MG/DL (70-104); MAGNESIUM 2.2 MG/DL (1.5-2.4); PHOSPHORUS 1.5 MG/DL (2.3-4.5); POTASSIUM 3.7 MMOL/L (3.5-5.1); SODIUM 143 MMOL/L (135-145); TOTAL CARBON DIOXIDE 32.5 MMOL/L (24-32); eGFR > 90 ML/MIN
[2020-07-16] MEDS: midazolam 100mg in NS 100ml 100 ML IV PRN ×4 (05:07→22:25)
[2020-07-16] MEDS: dexmedetomidine/D5W 100mL 100 ML IV SCH ×2 (05:45→16:38)
[2020-07-16] MEDS: acetaminophen 325mg tablet PO PRN (05:59)
[2020-07-16] MEDS: nystatin 500,000 unit/5ML UD oral suspension PO SCH ×5 (05:59→22:34)
--- NOTE | 2020-07-16 06:02 | NUR ---
Tylenol given for temp 38.5, Fresh Ice packs applied to bilateral axilla.
--- NOTE | 2020-07-16 06:24 | NUR ---
Problems reprioritized. Patient report given, questions answered & plan of care reviewed.
--- NOTE | 2020-07-16 06:30 | NUR ---
Patient in room CICU 2008. I have received report from Dallas Rogers and had the opportunity to ask questions and assume patient care. Patient on rotoprone bed on the rotorest setting, ventilated via trach fio2 45% peep of 10 sating 94-97%, fentanyl, versed and propofol infusing to L upper arm picc, peters and rectal tube draining to gravity. vital signs stable no signs or symptoms of distress will continue to monitor
[2020-07-16] MEDS: furosemide 40mg/4ml inj IV SCH (07:42)
[2020-07-16] MEDS: pantoprazole 40 MG vial IV SCH (07:42)
[2020-07-16] MEDS: aspirin 81mg tab.chew PO SCH (07:44)
[2020-07-16] MEDS: lactobacillus rhamnosus 10,000 MMU CELLS/CAPSULE NG SCH ×2 (07:44→19:44)
[2020-07-16] MEDS: ciprofloxacin 250mg tablet NG SCH ×2 (07:44→19:43)
[2020-07-16] MEDS: spironolactone 25 MG tablet PO SCH ×2 (07:44→19:44)
[2020-07-16] MEDS: chlordiazePOXIDE 5mg capsule PO SCH ×2 (07:44→19:59)
[2020-07-16] MEDS: enoxaparin 40mg/0.4ml syringe SUBCUT SCH (07:45)
[2020-07-16] MEDS: docusate sodium 100mg/10ml UD cup OGT SCH ×2 (07:46→19:44)
[2020-07-16] MEDS: K and/or MAG REPLACEMENT MC SCH ×2 (08:00→20:00)
--- NOTE | 2020-07-16 11:12 | NUR ---
Rounds note, Per Dr. Hopkins move patient to a regular pulmonary bed that has rotation assist, enter electrolyte replacement protocol, add CBC with mandif for 5 days, have Infectious Disease MD evaluate his current ABX regimen
[2020-07-16] MEDS ORDERED: sodium phosphate inj. 15 MMOL in dextrose 5%-water 250 ML IV ONE (12:00)
[2020-07-16] MEDS ORDERED: sodium phosphate inj. 30 MMOL in dextrose 5%-water 250 ML IV PRN (12:15)
[2020-07-16] MEDS ORDERED: sodium phosphate inj. 15 MMOL in dextrose 5%-water 250 ML IV PRN (12:15)
[2020-07-16] MEDS ORDERED: magnesium 4gm in 100ml NS 100 ML IV PRN (12:15)
[2020-07-16] MEDS ORDERED: magnesium 2GM in 50ml NS 50 ML IV PRN (12:15)
--- NOTE | 2020-07-16 13:30 | NUR ---
called [facility] to clarify wether or not patient had Cdiff while at their facility, Per Cleve in medical records it was suspected and the test was ordered but never completed due to patient being transferred to our facility
--- NOTE | 2020-07-16 16:30 | NUR ---
Patient transferred to pulmonary bed from rotoprone bed with q10 min 45 degree later rotation per dr prescott. Lines secured and air way maintained. vital signs stable no signs or symptoms of distress
--- NOTE | 2020-07-16 18:08 | NUR ---
Problems reprioritized. Patient report given, questions answered & plan of care reviewed with Suzi Rogers.
--- NOTE | 2020-07-16 18:08 | NUR ---
Patient in room CICU 2008. I have received report from Lucia RUIZ and had the opportunity to ask questions and assume patient care. Pt is now on debbie pulmonary bed. Remains on vent via #8 Shiley tracheostomy. On A/C PC mode FIO2 45% rate 26 TV +10 PEEP. Observed TV 500, RR 26 with oxygen saturation 96%. Pt is sedated on fentabyl/versed & propofol drips. IV left upper arm PICC line @ 13cm, dressing dated 07/15/20. Left nares [place] sump tube with enteric feedings Vital AF @ goal rate 80ml/hr. Rectal bag with harvest gold colored liquid stool, CDiff is pending. Pt is in contact isolation. Pizano drains yellow urine with white sediment along tubing. Bladder temp 37.7. No distress at shift change.
[2020-07-16] MEDS: insulin glargine (Lantus) pen - multi-dose SQ SCH (20:07)
[2020-07-17] VITALS (28 sets, daily range): BP systolic 94–131; BP diastolic 47–87
[2020-07-17] MEDS: insulin regular, human U-100 3ml vial - multi-dose SQ SCH ×4 (01:55→19:47)
[2020-07-17] MEDS: mineral oil/petrolatum ophthal oint EACHEYE SCH ×4 (01:55→20:09)
[2020-07-17] MEDS: midazolam 100mg in NS 100ml 100 ML IV PRN ×3 (02:18→21:14)
[2020-07-17] MEDS: FENTANYL-0.9 % NACL/PF 100 ML IV PRN ×4 (02:37→16:15)
[2020-07-17] MEDS: methylPREDNISolone sod succ 125mg/2ml vial IV SCH ×2 (02:38→07:19)
[2020-07-17 02:44] LABS: BASOPHILS # (AUTO) 0.1 X10'3 (0-0.2); BASOPHILS % (AUTO) 0.3 % (0-1); EOSINOPHILS % (AUTO) 0 % (0-6); LYMPHOCYTES # (AUTO) 2.3 X10'3 (1.1-4.8); LYMPHOCYTES % (AUTO) 10.5 % (21-51); MEAN CORPUSCULAR HEMOGLOBIN 30.2 PG (27.0-31.0); MEAN CORPUSCULAR HGB CONC 32.5 g/dL (33.0-36.5); MEAN CORPUSCULAR VOLUME 92.9 FL (78-98); MONOCYTES # (AUTO) 1.2 X10'3 (0-0.9); MONOCYTES % (AUTO) 5.8 % (2-12); NEUTROPHILS # (AUTO) 17.9 X10'3 (1.8-7.7); NEUTROPHILS % (AUTO) 83.4 % (42-75); PLATELET COUNT 290 X10'3 (140-440); RED BLOOD COUNT 3.98 X10'6 (4.70-6.10); RED CELL DISTRIBUTION WIDTH 13.3 % (11.5-14.5); WHITE BLOOD COUNT 21.5 X10'3 (4.5-11.0)
[2020-07-17 03:02] LABS: ALANINE AMINOTRANSFERASE 161 U/L (12-78); ALBUMIN 2.5 G/DL (3.4-5.0); ALBUMIN/GLOBULIN RATIO 0.6 (1.1-1.5); ALKALINE PHOSPHATASE 75 IU/L (46-116); ANION GAP 5 (8-16); ASPARTATE AMINO TRANSFERASE 34 U/L (10-37); BILIRUBIN,TOTAL 0.5 MG/DL (0.1-1.0); BLOOD UREA NITROGEN 32 MG/DL (7-18); BUN/CREATININE RATIO 59.3 (5.4-32.0); C-REACTIVE PROTEIN 0.29 MG/DL (0.0-0.5); CALCIUM 8.6 MG/DL (8.5-10.1); CHLORIDE 110 MMOL/L (99-107); CREATININE 0.54 MG/DL (0.60-1.10); GLUCOSE 142 MG/DL (70-104); PHOSPHORUS 3.4 MG/DL (2.3-4.5); POTASSIUM 3.4 MMOL/L (3.5-5.1); PREALBUMIN 37.3 MG/DL (19-36); SODIUM 147 MMOL/L (135-145); TOTAL CARBON DIOXIDE 31.7 MMOL/L (24-32); TOTAL PROTEIN 6.5 G/DL (6.4-8.2); eGFR > 90 ML/MIN
[2020-07-17 03:14] LABS: PLATELET ESTIMATE NORMAL; TOTAL CELLS COUNTED 100
[2020-07-17] MEDS: dexmedetomidine/D5W 100mL 100 ML IV SCH ×2 (03:31→14:24)
[2020-07-17] MEDS: ipratropium/albuterol 3ml nebule NEB SCH ×6 (03:37→23:18)
[2020-07-17] MEDS: potassium Cl 20mEq/100mL bag 100 ML IV PRN ×4 (03:52→08:30)
[2020-07-17 05:26] LABS: ABG OXYGEN SATURATION 94.6 % (94-97); ABG PCO2 (T) 36.7 mmHg (35.0-48.0); ABG PO2 (T) 74.5 mmHg (75.0-100.0); FCOHb 0.3 % (0.0-3.9); FMetHb 0.1 % (0.0-1.5); FO2Hb 94.2 % (94-97); PEEP 10 cm H2O; RESPIRATORY RATE 26 b/min; TOTAL HEMOGLOBIN 12.6 G/dl (14.0-18.0)
[2020-07-17] MEDS: nystatin 500,000 unit/5ML UD oral suspension PO SCH ×5 (05:37→22:05)
--- NOTE | 2020-07-17 06:10 | NUR ---
Problems reprioritized. Patient report given, questions answered & plan of care reviewed.
[2020-07-17] MEDS: docusate sodium 100mg/10ml UD cup OGT SCH ×2 (07:19→20:02)
[2020-07-17] MEDS: aspirin 81mg tab.chew PO SCH (07:20)
[2020-07-17] MEDS: lactobacillus rhamnosus 10,000 MMU CELLS/CAPSULE NG SCH ×2 (07:20→20:07)
[2020-07-17] MEDS: ciprofloxacin 250mg tablet NG SCH ×2 (07:20→20:00)
[2020-07-17] MEDS: chlordiazePOXIDE 5mg capsule PO SCH ×2 (07:20→20:02)
[2020-07-17] MEDS: pantoprazole 40 MG vial IV SCH (07:21)
[2020-07-17] MEDS: enoxaparin 40mg/0.4ml syringe SUBCUT SCH (07:21)
[2020-07-17] MEDS: furosemide 40mg/4ml inj IV SCH (07:21)
[2020-07-17] MEDS: spironolactone 25 MG tablet PO SCH ×2 (07:21→20:00)
[2020-07-17] MEDS: K and/or MAG REPLACEMENT MC SCH ×2 (07:56→20:00)
[2020-07-17] MEDS: propofol 1000mg/100ml bottle 100 ML IV SCH ×3 (09:58→22:04)
[2020-07-17 12:05] LABS: C DIFF ANTIGEN NEGATIVE (NEGATIVE); C DIFF SPECIMEN=DIARRHEA? ACCEPTABLE; C DIFFICILE TOXINS A&B NEGATIVE (Neg)
[2020-07-17] MEDS: insulin glargine (Lantus) pen - multi-dose SQ SCH (19:48)
[2020-07-17] MEDS: methylPREDNISolone sod succ/PF 40mg inj. IV SCH (20:04)
[2020-07-18] VITALS (23 sets, daily range): BP systolic 80–130; BP diastolic 46–95
[2020-07-18] MEDS: propofol 1000mg/100ml bottle 100 ML IV SCH ×5 (00:59→23:34)
[2020-07-18] MEDS: dexmedetomidine/D5W 100mL 100 ML IV SCH ×5 (01:17→20:58)
[2020-07-18] MEDS: mineral oil/petrolatum ophthal oint EACHEYE SCH ×4 (02:19→20:00)
[2020-07-18] MEDS: insulin regular, human U-100 3ml vial - multi-dose SQ SCH ×4 (02:27→20:34)
[2020-07-18 02:59] LABS: BASOPHILS % (AUTO) 0.1 % (0-1); EOSINOPHILS % (AUTO) 0.1 % (0-6); HEMATOCRIT 39.5 % (42.0-52.0); HEMOGLOBIN 12.7 g/dl (14.0-17.9); LYMPHOCYTES # (AUTO) 1.6 X10'3 (1.1-4.8); LYMPHOCYTES % (AUTO) 7.7 % (21-51); MEAN CORPUSCULAR HEMOGLOBIN 30.3 PG (27.0-31.0); MEAN CORPUSCULAR HGB CONC 32.1 g/dL (33.0-36.5); MEAN CORPUSCULAR VOLUME 94.5 FL (78-98); MEAN PLATELET VOLUME 8.3 FL (7.4-10.4); MONOCYTES % (AUTO) 4.8 % (2-12); NEUTROPHILS # (AUTO) 18.5 X10'3 (1.8-7.7); NEUTROPHILS % (AUTO) 87.3 % (42-75); PLATELET COUNT 303 X10'3 (140-440); RED BLOOD COUNT 4.18 X10'6 (4.70-6.10); RED CELL DISTRIBUTION WIDTH 13.4 % (11.5-14.5); WHITE BLOOD COUNT 21.2 X10'3 (4.5-11.0)
[2020-07-18] MEDS: ipratropium/albuterol 3ml nebule NEB SCH ×6 (03:18→23:15)
[2020-07-18 03:21] LABS: ALANINE AMINOTRANSFERASE 167 U/L (12-78); ALBUMIN 2.5 G/DL (3.4-5.0); ALBUMIN/GLOBULIN RATIO 0.6 (1.1-1.5); ALKALINE PHOSPHATASE 75 IU/L (46-116); ANION GAP 6 (8-16); ASPARTATE AMINO TRANSFERASE 51 U/L (10-37); BILIRUBIN,TOTAL 0.4 MG/DL (0.1-1.0); BLOOD UREA NITROGEN 33 MG/DL (7-18); CALCIUM 8.4 MG/DL (8.5-10.1); CHLORIDE 106 MMOL/L (99-107); CREATININE 0.66 MG/DL (0.60-1.10); GLUCOSE 260 MG/DL (70-104); MAGNESIUM 2.4 MG/DL (1.5-2.4); PHOSPHORUS 5.1 MG/DL (2.3-4.5); POTASSIUM 4.7 MMOL/L (3.5-5.1); SODIUM 140 MMOL/L (135-145); TOTAL CARBON DIOXIDE 28.5 MMOL/L (24-32); TOTAL PROTEIN 6.4 G/DL (6.4-8.2); TRIGLYCERIDES 284 MG/DL (20-135); eGFR > 90 ML/MIN
[2020-07-18 04:10] LABS: ABG HCO3 27.8 mmol/L (22.0-26.0); ABG OXYGEN SATURATION 94.6 % (94-97); ABG PCO2 (T) 43.7 mmHg (35.0-48.0); ABG PO2 (T) 74.8 mmHg (75.0-100.0); FCOHb 0.2 % (0.0-3.9); FMetHb 0.2 % (0.0-1.5); FO2Hb 94.2 % (94-97); PATIENT TEMPERATURE 37.4; PEEP 5 cm H2O; TOTAL HEMOGLOBIN 14.4 G/dl (14.0-18.0)
[2020-07-18] MEDS: FENTANYL-0.9 % NACL/PF 100 ML IV PRN ×3 (04:41→17:21)
--- NOTE | 2020-07-18 06:30 | NUR ---
Patient in room CICU 2008. I have received report from SARA Jacome and had the opportunity to ask questions and assume patient care.
[2020-07-18] MEDS: nystatin 500,000 unit/5ML UD oral suspension PO SCH ×5 (06:54→22:00)
--- NOTE | 2020-07-18 06:54 | NUR ---
Diprivan and fentanyl reassessments not done by night shift manager RN. AM RN not here at time of reassessments. Documented by AM RN as "not done."
[2020-07-18] MEDS: enoxaparin 40mg/0.4ml syringe SUBCUT SCH (07:17)
[2020-07-18] MEDS: methylPREDNISolone sod succ/PF 40mg inj. IV SCH ×2 (07:17→20:57)
[2020-07-18] MEDS: chlordiazePOXIDE 5mg capsule PO SCH ×2 (07:17→20:53)
[2020-07-18] MEDS: spironolactone 25 MG tablet PO SCH ×2 (07:17→20:49)
[2020-07-18] MEDS: docusate sodium 100mg/10ml UD cup OGT SCH ×2 (07:17→20:00)
[2020-07-18] MEDS: pantoprazole 40 MG vial IV SCH (07:17)
[2020-07-18] MEDS: furosemide 40mg/4ml inj IV SCH (07:17)
[2020-07-18] MEDS: aspirin 81mg tab.chew PO SCH (07:17)
[2020-07-18] MEDS: ciprofloxacin 250mg tablet NG SCH ×2 (07:17→20:52)
[2020-07-18] MEDS: lactobacillus rhamnosus 10,000 MMU CELLS/CAPSULE NG SCH ×2 (07:17→20:52)
[2020-07-18] MEDS: K and/or MAG REPLACEMENT MC SCH ×2 (07:30→20:00)
[2020-07-18] MEDS: midazolam 100mg in NS 100ml 100 ML IV PRN (09:35)
--- NOTE | 2020-07-18 11:57 | NUR ---
Reassessment: Pt remains intubated and tolerating TF with GRV WNL. LBM 07/17 documented as large. Pt receiving routine bowel care. No changes to nutrition recommendations at this time. Will continue to follow closely. Recommendations: 1) Continuous Vital AF via NG tube with goal rate of 80 mL/hr. To provide: 1920 mL total volume/day, 2304 kcal, 144 g protein, and 1557 mL water 2) Additional water flush per water fitness instructor 3) Prealbumin q Tuesday/; Daily weights 4) Routine bowel care Addendum: 07/18/20 at [address] Amended: Links added.
[2020-07-18] MEDS: LIDOcaine Viscous 15ml cup MM PRN ×2 (12:48→20:54)
[2020-07-18] MEDS: acetaminophen 325mg tablet PO PRN (16:16)
[2020-07-18] MEDS: vancomycin/NS 1 GM ADD-VANTAGE 250 ML IV SCH (17:28)
--- NOTE | 2020-07-18 18:10 | NUR ---
Problems reprioritized. Patient report given, questions answered & plan of care reviewed with SARA Jacome.
--- NOTE | 2020-07-18 19:00 | NUR ---
Patient in room CICU 2008. I have received report from So RUIZ and had the opportunity to ask questions and assume patient care.
[2020-07-18] MEDS: insulin glargine (Lantus) pen - multi-dose SQ SCH (20:36)
[2020-07-19] VITALS (24 sets, daily range): BP systolic 82–112; BP diastolic 48–95
[2020-07-19] MEDS: dexmedetomidine/D5W 100mL 100 ML IV SCH ×5 (00:13→19:38)
[2020-07-19] MEDS: vancomycin/NS 1 GM ADD-VANTAGE 250 ML IV SCH ×3 (01:00→20:17)
[2020-07-19] MEDS: ipratropium/albuterol 3ml nebule NEB SCH ×6 (02:31→22:54)
[2020-07-19 02:56] LABS: ABG BASE EXCESS 1.3 mmol/L (-2.0-2.0); ABG HCO3 25.6 mmol/L (22.0-26.0); ABG OXYGEN SATURATION 91.4 % (94-97); ABG PCO2 (T) 41.2 mmHg (35.0-48.0); ABG PO2 (T) 64.4 mmHg (75.0-100.0); ALLEN'S TEST POSITIVE; FCOHb 0.4 % (0.0-3.9); FMetHb 0.1 % (0.0-1.5); FO2Hb 90.9 % (94-97); PEEP 5 cm H2O; TOTAL HEMOGLOBIN 14.5 G/dl (14.0-18.0)
[2020-07-19] MEDS: insulin regular, human U-100 3ml vial - multi-dose SQ SCH ×3 (03:00→20:06)
[2020-07-19 03:04] LABS: BASOPHILS % (AUTO) 0.1 % (0-1); EOSINOPHILS % (AUTO) 0.1 % (0-6); HEMATOCRIT 40.3 % (42.0-52.0); LYMPHOCYTES # (AUTO) 1.9 X10'3 (1.1-4.8); MEAN CORPUSCULAR HEMOGLOBIN 30.1 PG (27.0-31.0); MEAN CORPUSCULAR HGB CONC 32.3 g/dL (33.0-36.5); MEAN CORPUSCULAR VOLUME 93.1 FL (78-98); MEAN PLATELET VOLUME 8.4 FL (7.4-10.4); MONOCYTES # (AUTO) 1.1 X10'3 (0-0.9); MONOCYTES % (AUTO) 5.1 % (2-12); NEUTROPHILS # (AUTO) 17.6 X10'3 (1.8-7.7); NEUTROPHILS % (AUTO) 85.7 % (42-75); PLATELET COUNT 257 X10'3 (140-440); RED BLOOD COUNT 4.33 X10'6 (4.70-6.10); RED CELL DISTRIBUTION WIDTH 13.5 % (11.5-14.5); WHITE BLOOD COUNT 20.6 X10'3 (4.5-11.0)
[2020-07-19] MEDS: propofol 1000mg/100ml bottle 100 ML IV SCH ×3 (03:13→15:44)
[2020-07-19 03:15] LABS: ALANINE AMINOTRANSFERASE 128 U/L (12-78); ALBUMIN 2.5 G/DL (3.4-5.0); ALBUMIN/GLOBULIN RATIO 0.7 (1.1-1.5); ALKALINE PHOSPHATASE 71 IU/L (46-116); ANION GAP 5 (8-16); ASPARTATE AMINO TRANSFERASE 24 U/L (10-37); BILIRUBIN,TOTAL 0.4 MG/DL (0.1-1.0); BLOOD UREA NITROGEN 30 MG/DL (7-18); BUN/CREATININE RATIO 52.6 (5.4-32.0); CALCIUM 8.1 MG/DL (8.5-10.1); CHLORIDE 105 MMOL/L (99-107); CREATININE 0.57 MG/DL (0.60-1.10); GLUCOSE 242 MG/DL (70-104); MAGNESIUM 2.1 MG/DL (1.5-2.4); PHOSPHORUS 3.8 MG/DL (2.3-4.5); POTASSIUM 4.2 MMOL/L (3.5-5.1); SODIUM 137 MMOL/L (135-145); TOTAL CARBON DIOXIDE 26.8 MMOL/L (24-32); TOTAL PROTEIN 6.2 G/DL (6.4-8.2); eGFR > 90 ML/MIN
[2020-07-19 03:32] LABS: ANISOCYTOSIS 1+; PLATELET ESTIMATE NORMAL; TOTAL CELLS COUNTED 100
[2020-07-19] MEDS: mineral oil/petrolatum ophthal oint EACHEYE SCH ×4 (08:00→20:24)
[2020-07-19] MEDS: pantoprazole 40 MG vial IV SCH (08:00)
[2020-07-19] MEDS: aspirin 81mg tab.chew PO SCH (08:26)
[2020-07-19] MEDS: methylPREDNISolone sod succ/PF 40mg inj. IV SCH ×2 (08:27→20:11)
[2020-07-19] MEDS: lactobacillus rhamnosus 10,000 MMU CELLS/CAPSULE NG SCH ×2 (08:27→20:10)
[2020-07-19] MEDS: spironolactone 25 MG tablet PO SCH ×2 (08:27→20:19)
[2020-07-19] MEDS: furosemide 40mg/4ml inj IV SCH (08:27)
[2020-07-19] MEDS: ciprofloxacin 250mg tablet NG SCH ×2 (08:27→20:11)
[2020-07-19] MEDS: enoxaparin 40mg/0.4ml syringe SUBCUT SCH (08:31)
[2020-07-19] MEDS: docusate sodium 100mg/10ml UD cup OGT SCH ×2 (08:33→20:27)
[2020-07-19] MEDS: chlordiazePOXIDE 5mg capsule PO SCH ×2 (08:33→20:10)
[2020-07-19] MEDS: FENTANYL-0.9 % NACL/PF 100 ML IV PRN ×3 (09:23→20:27)
[2020-07-19] MEDS: nystatin 500,000 unit/5ML UD oral suspension PO SCH ×4 (10:00→22:00)
[2020-07-19] MEDS: midazolam 2 mg/2 ml injection IV PRN ×3 (12:55→23:47)
[2020-07-19] MEDS ORDERED: VANCOMYCIN LEVEL IV ONE (16:30)
[2020-07-19] MEDS: K and/or MAG REPLACEMENT MC SCH (20:00)
[2020-07-19] MEDS: insulin glargine (Lantus) pen - multi-dose SQ SCH (20:07)
[2020-07-20] VITALS (24 sets, daily range): BP systolic 67–143; BP diastolic 36–99
[2020-07-20] MEDS: midazolam 2 mg/2 ml injection IV PRN (00:23)
[2020-07-20] MEDS: insulin regular, human U-100 3ml vial - multi-dose SQ SCH ×4 (01:59→21:23)
[2020-07-20 02:02] LABS: BASOPHILS # (AUTO) 0.1 X10'3 (0-0.2); BASOPHILS % (AUTO) 0.3 % (0-1); EOSINOPHILS % (AUTO) 0.1 % (0-6); HEMATOCRIT 37.7 % (42.0-52.0); HEMOGLOBIN 12.7 g/dl (14.0-17.9); LYMPHOCYTES # (AUTO) 1.3 X10'3 (1.1-4.8); LYMPHOCYTES % (AUTO) 6.4 % (21-51); MEAN CORPUSCULAR HEMOGLOBIN 31.5 PG (27.0-31.0); MEAN CORPUSCULAR HGB CONC 33.5 g/dL (33.0-36.5); MEAN CORPUSCULAR VOLUME 93.9 FL (78-98); MONOCYTES # (AUTO) 0.8 X10'3 (0-0.9); MONOCYTES % (AUTO) 4.2 % (2-12); NEUTROPHILS # (AUTO) 17.6 X10'3 (1.8-7.7); PLATELET COUNT 183 X10'3 (140-440); RED BLOOD COUNT 4.02 X10'6 (4.70-6.10); RED CELL DISTRIBUTION WIDTH 13.6 % (11.5-14.5); WHITE BLOOD COUNT 19.8 X10'3 (4.5-11.0)
[2020-07-20 02:12] LABS: ALANINE AMINOTRANSFERASE 94 U/L (12-78); ALBUMIN 2.5 G/DL (3.4-5.0); ALBUMIN/GLOBULIN RATIO 0.7 (1.1-1.5); ALKALINE PHOSPHATASE 62 IU/L (46-116); ANION GAP 2 (8-16); ASPARTATE AMINO TRANSFERASE 14 U/L (10-37); BILIRUBIN,TOTAL 0.4 MG/DL (0.1-1.0); BLOOD UREA NITROGEN 26 MG/DL (7-18); CALCIUM 8.2 MG/DL (8.5-10.1); CHLORIDE 103 MMOL/L (99-107); CREATININE 0.51 MG/DL (0.60-1.10); GLUCOSE 211 MG/DL (70-104); MAGNESIUM 2.1 MG/DL (1.5-2.4); PHOSPHORUS 4.3 MG/DL (2.3-4.5); POTASSIUM 4.2 MMOL/L (3.5-5.1); SODIUM 135 MMOL/L (135-145); TOTAL CARBON DIOXIDE 30.5 MMOL/L (24-32); TOTAL PROTEIN 6.1 G/DL (6.4-8.2); VANCOMYCIN,RANDOM 4.7 UG/ML; eGFR > 90 ML/MIN
[2020-07-20] MEDS: mineral oil/petrolatum ophthal oint EACHEYE SCH ×4 (02:30→19:17)
[2020-07-20] MEDS: ipratropium/albuterol 3ml nebule NEB SCH ×6 (03:04→23:16)
[2020-07-20 03:13] LABS: ANISOCYTOSIS 1+; PLATELET ESTIMATE NORMAL; SMUDGE CELLS FEW; TOTAL CELLS COUNTED 100
[2020-07-20 03:55] LABS: ABG BASE EXCESS 0.4 mmol/L (-2.0-2.0); ABG OXYGEN SATURATION 93.6 % (94-97); ABG PCO2 (T) 44.4 mmHg (35.0-48.0); ABG PO2 (T) 68.5 mmHg (75.0-100.0); ALLEN'S TEST POSITIVE; FCOHb 0.7 % (0.0-3.9); FMetHb 0.3 % (0.0-1.5); FO2Hb 92.7 % (94-97); PATIENT TEMPERATURE 36.7; PEEP 5 cm H2O; TOTAL HEMOGLOBIN 15.2 G/dl (14.0-18.0)
[2020-07-20] MEDS: propofol 1000mg/100ml bottle 100 ML IV SCH ×5 (04:21→21:29)
[2020-07-20] MEDS: dexmedetomidine/D5W 100mL 100 ML IV SCH ×6 (04:21→21:38)
[2020-07-20] MEDS ORDERED: [UNRECOGNIZED DRUG - REMARK] IV ONE (05:00)
[2020-07-20] MEDS ORDERED: vancomycin 1500mg/300ml PREMIX 250 ML IV SCH (06:00)
[2020-07-20] MEDS ORDERED: vancomycin/NS 1 GM ADD-VANTAGE 250 ML IV SCH (06:00)
--- NOTE | 2020-07-20 06:59 | NUR ---
Patient in room CICU 2008. I have received report from Ayaz and had the opportunity to ask questions and assume patient care.
[2020-07-20] MEDS: nystatin 500,000 unit/5ML UD oral suspension PO SCH ×5 (07:00→23:15)
[2020-07-20] MEDS: docusate sodium 100mg/10ml UD cup OGT SCH ×2 (08:00→19:18)
[2020-07-20] MEDS: K and/or MAG REPLACEMENT MC SCH ×2 (08:00→20:00)
[2020-07-20] MEDS: chlordiazePOXIDE 5mg capsule PO SCH ×2 (08:28→20:16)
[2020-07-20] MEDS: ciprofloxacin 250mg tablet NG SCH ×2 (08:29→19:17)
[2020-07-20] MEDS: lactobacillus rhamnosus 10,000 MMU CELLS/CAPSULE NG SCH ×2 (08:29→19:17)
[2020-07-20] MEDS: enoxaparin 40mg/0.4ml syringe SUBCUT SCH (08:30)
[2020-07-20] MEDS: methylPREDNISolone sod succ/PF 40mg inj. IV SCH ×2 (08:30→19:18)
[2020-07-20] MEDS: pantoprazole 40 MG vial IV SCH (08:30)
[2020-07-20] MEDS: aspirin 81mg tab.chew PO SCH (08:30)
[2020-07-20] MEDS: furosemide 40mg/4ml inj IV SCH (08:30)
[2020-07-20] MEDS: spironolactone 25 MG tablet PO SCH ×2 (08:32→20:00)
[2020-07-20] MEDS: FENTANYL-0.9 % NACL/PF 100 ML IV PRN ×2 (12:18→18:59)
[2020-07-20] MEDS: acetaminophen 325mg tablet PO PRN (14:45)
--- NOTE | 2020-07-20 14:52 | NUR ---
1415- patient has pulled his rectal tube out with his feet, scoots bottom down in bed, HR up to 150 and very agitated, temp 38.2-, replaced peters cath bag to send UA . HR down to 108 when sedation back up to 45.
[2020-07-20] MEDS: VANCOmycin 1250MG/NS 250ml Bag 250 ML IV SCH ×2 (15:23→23:15)
[2020-07-20 15:35] LABS: CLARITY,URINE SLIGHTLY CLOUDY (Clear); COLOR,URINE YELLOW (Yellow); GLUCOSE, URINE 100 mg/dl (Neg); KETONES,URINE NEGATIVE (Neg); LEUKOCYTE ESTERASE ,URINE TRACE (Neg); NITRITES, URINE NEGATIVE (Neg); OCCULT BLOOD,URINE MODERATE (Neg); PROTEIN,URINE 30 mg/dl (Neg); UROBILINOGEN,URINE 0.2 E.U/dL (0.2-1.0)
[2020-07-20 15:39] LABS: UA COLLECTION TYPE FOLEY CATH
[2020-07-20 15:43] LABS: SQUAMOUS EPITHELIAL CELL,UR NONE SEEN /LPF (FEW)
[2020-07-20 15:45] LABS: YEAST MANY /HPF (NEGATIVE)
[2020-07-20 15:46] LABS: WBC,URINE 30-50 /HPF (0-4)
[2020-07-20 15:47] LABS: BACTERIA,URINE FEW /HPF (Neg); CAL OXALATE CRYSTALS 3+ /HPF (NEGATIVE)
--- NOTE | 2020-07-20 18:25 | NUR ---
Problems reprioritized. Patient report given, questions answered & plan of care reviewed with
[2020-07-20] MEDS: NORepinephrine 8mg/ 250ml NS 250 ML IV PRN (19:26)
[2020-07-20] MEDS: insulin glargine (Lantus) pen - multi-dose SQ SCH (21:22)
[2020-07-21] VITALS (24 sets, daily range): BP systolic 83–143; BP diastolic 54–95
[2020-07-21] MEDS: propofol 1000mg/100ml bottle 100 ML IV SCH ×6 (01:45→21:06)
[2020-07-21] MEDS: mineral oil/petrolatum ophthal oint EACHEYE SCH ×4 (02:08→20:04)
[2020-07-21] MEDS: FENTANYL-0.9 % NACL/PF 100 ML IV PRN ×3 (02:09→22:10)
[2020-07-21] MEDS: ipratropium/albuterol 3ml nebule NEB SCH ×6 (02:49→23:09)
[2020-07-21 03:37] LABS: BASOPHILS # (AUTO) 0.1 X10'3 (0-0.2); BASOPHILS % (AUTO) 0.3 % (0-1); EOSINOPHILS % (AUTO) 0 % (0-6); HEMOGLOBIN 14.7 g/dl (14.0-17.9); LYMPHOCYTES # (AUTO) 1.9 X10'3 (1.1-4.8); LYMPHOCYTES % (AUTO) 5.5 % (21-51); MEAN CORPUSCULAR HEMOGLOBIN 30.3 PG (27.0-31.0); MEAN CORPUSCULAR HGB CONC 32.6 g/dL (33.0-36.5); MEAN CORPUSCULAR VOLUME 92.8 FL (78-98); MEAN PLATELET VOLUME 8.5 FL (7.4-10.4); MONOCYTES # (AUTO) 1.4 X10'3 (0-0.9); MONOCYTES % (AUTO) 4.1 % (2-12); NEUTROPHILS # (AUTO) 30.6 X10'3 (1.8-7.7); NEUTROPHILS % (AUTO) 90.1 % (42-75); PLATELET COUNT 437 X10'3 (140-440); RED BLOOD COUNT 4.85 X10'6 (4.70-6.10)
[2020-07-21 03:43] LABS: ALANINE AMINOTRANSFERASE 80 U/L (12-78); ALBUMIN 2.8 G/DL (3.4-5.0); ALBUMIN/GLOBULIN RATIO 0.7 (1.1-1.5); ALKALINE PHOSPHATASE 76 IU/L (46-116); ANION GAP 6 (8-16); ASPARTATE AMINO TRANSFERASE 15 U/L (10-37); BILIRUBIN,TOTAL 0.5 MG/DL (0.1-1.0); BLOOD UREA NITROGEN 18 MG/DL (7-18); BUN/CREATININE RATIO 30.5 (5.4-32.0); CALCIUM 8.5 MG/DL (8.5-10.1); CHLORIDE 99 MMOL/L (99-107); CREATININE 0.59 MG/DL (0.60-1.10); GLUCOSE 238 MG/DL (70-104); MAGNESIUM 1.8 MG/DL (1.5-2.4); PHOSPHORUS 3.3 MG/DL (2.3-4.5); POTASSIUM 3.9 MMOL/L (3.5-5.1); PREALBUMIN 49.4 MG/DL (19-36); SODIUM 134 MMOL/L (135-145); TOTAL CARBON DIOXIDE 29.2 MMOL/L (24-32); TOTAL PROTEIN 7.1 G/DL (6.4-8.2); eGFR > 90 ML/MIN
[2020-07-21 04:18] LABS: WHITE BLOOD COUNT 33.9 X10'3 (4.5-11.0)
[2020-07-21] MEDS: insulin regular, human U-100 3ml vial - multi-dose SQ SCH ×4 (04:21→20:22)
[2020-07-21] MEDS: acetaminophen 325mg tablet PO PRN (04:23)
[2020-07-21 04:50] LABS: ANISOCYTOSIS 1+; PLATELET ESTIMATE NORMAL; TOTAL CELLS COUNTED 100
[2020-07-21 04:51] LABS: LARGE PLATELETS FEW; SMUDGE CELLS FEW
--- NOTE | 2020-07-21 06:37 | NUR ---
Problems reprioritized. Patient report given, questions answered & plan of care reviewed with SARA Gonzalez.
[2020-07-21] MEDS: nystatin 500,000 unit/5ML UD oral suspension PO SCH ×2 (06:43→07:45)
[2020-07-21] MEDS: dexmedetomidine/D5W 100mL 100 ML IV SCH ×4 (06:43→21:06)
[2020-07-21] MEDS: NORepinephrine 8mg/ 250ml NS 250 ML IV PRN ×2 (06:54→23:21)
[2020-07-21] MEDS: aspirin 81mg tab.chew PO SCH (07:41)
[2020-07-21] MEDS: ciprofloxacin 250mg tablet NG SCH ×2 (07:41→20:03)
[2020-07-21] MEDS: lactobacillus rhamnosus 10,000 MMU CELLS/CAPSULE NG SCH ×2 (07:41→20:03)
[2020-07-21] MEDS: chlordiazePOXIDE 5mg capsule PO SCH (07:41)
[2020-07-21] MEDS: pantoprazole 40 MG vial IV SCH (07:42)
[2020-07-21] MEDS: methylPREDNISolone sod succ/PF 40mg inj. IV SCH ×2 (07:42→20:03)
[2020-07-21] MEDS: enoxaparin 40mg/0.4ml syringe SUBCUT SCH (07:42)
[2020-07-21] MEDS: K and/or MAG REPLACEMENT MC SCH ×2 (07:43→20:00)
[2020-07-21] MEDS: VANCOmycin 1250MG/NS 250ml Bag 250 ML IV SCH (07:43)
[2020-07-21] MEDS: furosemide 40mg/4ml inj IV SCH (07:46)
[2020-07-21] MEDS: docusate sodium 100mg/10ml UD cup OGT SCH (07:47)
[2020-07-21] MEDS: spironolactone 25 MG tablet PO SCH ×2 (07:47→20:04)
[2020-07-21] MEDS: TOBRAMYCIN IV SCH (10:49)
[2020-07-21] MEDS: NORMAL SALINE IV SCH (10:49)
[2020-07-21] MEDS ORDERED: cyclobenzaprine 10mg tablet NG PRN (11:30)
[2020-07-21] MEDS ORDERED: acetaminophen 325mg tablet NG PRN (11:30)
[2020-07-21] MEDS ORDERED: dextrose ORAL solution 15 GM/59 ML bottle NG PRN ×2 (11:31→11:45)
[2020-07-21] MEDS ORDERED: ondansetron 4mg rapidly disintigrating tab NG PRN (11:32)
[2020-07-21] MEDS: nystatin 500,000 unit/5ML UD oral suspension NG SCH ×3 (13:31→22:08)
--- NOTE | 2020-07-21 14:26 | NUR ---
Reassessment: Pt mechanically ventilated with tracheostomy, PC ventilator mode. Pending PEG placement. Tolerating tube feeding. Pt receiving routine bowel care. No changes to nutrition recommendations at this time. Will continue to follow closely. Recommendations: 1) Continuous Vital AF via NG tube with goal rate of 80 mL/hr. To provide: 1920 mL total volume/day, 2304 kcal, 144 g protein, and 1557 mL water 2) Additional water flush per soda dialyzer 3) Prealbumin q Tuesday/; Daily weights 4) Routine bowel care Addendum: 07/21/20 at [address] Amended: Links added.
[2020-07-21] MEDS ORDERED: VANCOMYCIN LEVEL IV ONE (14:30)
[2020-07-21] MEDS: docusate sodium 100mg/10ml UD cup NG SCH (20:00)
[2020-07-21] MEDS: chlordiazePOXIDE 5mg capsule NG SCH (20:03)
[2020-07-21] MEDS: risperiDONE 0.5mg tablet NG SCH (20:05)
[2020-07-21] MEDS: insulin glargine (Lantus) pen - multi-dose SQ SCH (20:23)
[2020-07-21] MEDS ORDERED: MESSAGE TO NURSING IV ONE ×2 (21:00→22:00)
[2020-07-21] MEDS ORDERED: diatr meglu/diatrizoate 30ml oral sol.-(3 dose) bottle NG ONE (22:00)
[2020-07-22] VITALS (23 sets, daily range): BP systolic 96–128; BP diastolic 59–90
[2020-07-22] MEDS: propofol 1000mg/100ml bottle 100 ML IV SCH ×8 (01:41→23:06)
[2020-07-22] MEDS: dexmedetomidine/D5W 100mL 100 ML IV SCH ×5 (01:42→21:55)
[2020-07-22] MEDS: mineral oil/petrolatum ophthal oint EACHEYE SCH ×4 (01:42→20:15)
[2020-07-22] MEDS: insulin regular, human U-100 3ml vial - multi-dose SQ SCH ×3 (02:09→20:35)
[2020-07-22] MEDS: ipratropium/albuterol 3ml nebule NEB SCH ×6 (02:38→22:53)
[2020-07-22 02:41] LABS: BASOPHILS % (AUTO) 0.2 % (0-1); EOSINOPHILS % (AUTO) 0.1 % (0-6); HEMATOCRIT 39.4 % (42.0-52.0); HEMOGLOBIN 13.1 g/dl (14.0-17.9); LYMPHOCYTES # (AUTO) 1.7 X10'3 (1.1-4.8); LYMPHOCYTES % (AUTO) 8.6 % (21-51); MEAN CORPUSCULAR HEMOGLOBIN 30.6 PG (27.0-31.0); MEAN CORPUSCULAR HGB CONC 33.3 g/dL (33.0-36.5); MEAN CORPUSCULAR VOLUME 92.1 FL (78-98); MEAN PLATELET VOLUME 8.2 FL (7.4-10.4); MONOCYTES # (AUTO) 1.1 X10'3 (0-0.9); MONOCYTES % (AUTO) 5.4 % (2-12); NEUTROPHILS # (AUTO) 17.2 X10'3 (1.8-7.7); NEUTROPHILS % (AUTO) 85.7 % (42-75); PLATELET COUNT 389 X10'3 (140-440); RED BLOOD COUNT 4.28 X10'6 (4.70-6.10); RED CELL DISTRIBUTION WIDTH 14.1 % (11.5-14.5); WHITE BLOOD COUNT 20.1 X10'3 (4.5-11.0)
[2020-07-22 03:05] LABS: ALANINE AMINOTRANSFERASE 55 U/L (12-78); ALBUMIN 2.6 G/DL (3.4-5.0); ALBUMIN/GLOBULIN RATIO 0.7 (1.1-1.5); ALKALINE PHOSPHATASE 62 IU/L (46-116); ANION GAP 5 (8-16); ASPARTATE AMINO TRANSFERASE 12 U/L (10-37); BILIRUBIN,TOTAL 0.4 MG/DL (0.1-1.0); BLOOD UREA NITROGEN 21 MG/DL (7-18); BUN/CREATININE RATIO 39.6 (5.4-32.0); CALCIUM 8.8 MG/DL (8.5-10.1); CHLORIDE 101 MMOL/L (99-107); CREATININE 0.53 MG/DL (0.60-1.10); GLUCOSE 232 MG/DL (70-104); SODIUM 134 MMOL/L (135-145); TOTAL CARBON DIOXIDE 28.1 MMOL/L (24-32); TOTAL PROTEIN 6.4 G/DL (6.4-8.2); eGFR > 90 ML/MIN
[2020-07-22 03:08] LABS: PARTIAL THROMBOPLASTIN TIME 20 SECONDS (22-32)
[2020-07-22] MEDS: nystatin 500,000 unit/5ML UD oral suspension NG SCH ×5 (06:00→21:54)
--- NOTE | 2020-07-22 06:15 | NUR ---
Problems reprioritized. Patient report given, questions answered & plan of care reviewed with SARA Velasquez.
[2020-07-22] MEDS: enoxaparin 40mg/0.4ml syringe SUBCUT SCH (06:18)
[2020-07-22] MEDS: FENTANYL-0.9 % NACL/PF 100 ML IV PRN ×2 (07:55→18:05)
[2020-07-22] MEDS: chlordiazePOXIDE 5mg capsule NG SCH ×2 (08:00→20:17)
[2020-07-22] MEDS: lactobacillus rhamnosus 10,000 MMU CELLS/CAPSULE NG SCH ×2 (08:00→20:16)
[2020-07-22] MEDS: docusate sodium 100mg/10ml UD cup NG SCH ×2 (08:00→20:16)
[2020-07-22] MEDS: aspirin 81mg tab.chew NG SCH (08:00)
[2020-07-22] MEDS: K and/or MAG REPLACEMENT MC SCH ×2 (08:00→20:00)
[2020-07-22] MEDS: spironolactone 25 MG tablet PO SCH ×2 (08:00→20:17)
[2020-07-22] MEDS: ciprofloxacin 250mg tablet NG SCH ×2 (08:00→20:16)
[2020-07-22] MEDS: methylPREDNISolone sod succ/PF 40mg inj. IV SCH ×2 (08:26→20:15)
[2020-07-22] MEDS: furosemide 40mg/4ml inj IV SCH (08:26)
[2020-07-22] MEDS: pantoprazole 40 MG vial IV SCH (08:26)
[2020-07-22] MEDS ORDERED: Dextrose 10%-water IV solution 1,000 ML IV SCH (08:55)
[2020-07-22] MEDS: Dextrose 10%-water IV solution 1,000 ML IV SCH ×2 (09:36→21:26)
[2020-07-22] MEDS: TOBRAMYCIN IV SCH (09:44)
[2020-07-22] MEDS: NORMAL SALINE IV SCH (09:44)
[2020-07-22 10:02] LABS: PLATELET ESTIMATE NORMAL; TOTAL CELLS COUNTED 100
--- NOTE | 2020-07-22 11:44 | NUR ---
F/u: Pt remains intubated. TF on hold at this time pending PEG placement. Pt getting kcal via Dextrose and Propofol at this time. Will continue to follow closely and make recommendations as appropriate. Recommendations: 1) Resume continuous Vital AF via PEG once okayed by MD at goal rate of 80 mL/hr. To provide: 1920 mL total volume/day, 2304 kcal, 144 g protein, and 1557 mL water 2) Additional water flush per soft metals hand engraver 3) Prealbumin q Tuesday/; Daily weights 4) Routine bowel care Addendum: 07/22/20 at [address] Amended: Links added.
[2020-07-22] MEDS ORDERED: zinc oxide ointment 30gm tube TP PRN (12:55)
[2020-07-22] MEDS ORDERED: glucagon, human recombinant 1mg kit ONE ×2 (13:29→13:42)
[2020-07-22] MEDS ORDERED: LIDOcaine 1%/PF 5ML 10 MG/ML VIAL ONE (13:29)
[2020-07-22] MEDS ORDERED: iohexol 300 MG/1 ML 50ml polymer ONE (13:44)
--- NOTE | 2020-07-22 14:57 | NUR ---
Patient returned from OR s/p PEG placement. vss. Abd dressing intact, orders noted for use in 6 hours/ & return of bowel sounds.
--- NOTE | 2020-07-22 16:14 | NUR ---
TF Consult: Pt s/p PEG placement. Recommend to continue vital AF at 80 ml/hr, d/w critical care staff. Pending LTAC tomorrow per MD progress note. will continue to follow closely and make recommendations as appropriate. Recommendations: 1) Resume continuous Vital AF via PEG goal rate of 80 mL/hr. To provide: 1920 mL total volume/day, 2304 kcal, 144 g protein, and 1557 mL water 2) Additional water flush per jewel sorter 3) Prealbumin q Tuesday/; Daily weights 4) Routine bowel care Addendum: 07/22/20 at [address] Amended: Links added.
--- NOTE | 2020-07-22 18:18 | NUR ---
Patient in room CICU 2008. I have received report from Eva RUIZ and had the opportunity to ask questions and assume patient care.
[2020-07-22] MEDS: NORepinephrine 8mg/ 250ml NS 250 ML IV PRN (19:05)
[2020-07-22] MEDS: insulin glargine (Lantus) pen - multi-dose SQ SCH (20:36)
[2020-07-22] MEDS: risperiDONE 0.5mg tablet NG SCH (21:55)
[2020-07-23] VITALS (25 sets, daily range): BP systolic 89–126; BP diastolic 43–82
[2020-07-23] MEDS: dexmedetomidine/D5W 100mL 100 ML IV SCH ×4 (01:44→22:33)
[2020-07-23] MEDS: mineral oil/petrolatum ophthal oint EACHEYE SCH ×4 (01:54→20:41)
[2020-07-23] MEDS: insulin regular, human U-100 3ml vial - multi-dose SQ SCH ×4 (01:55→22:47)
[2020-07-23 02:48] LABS: BASOPHILS % (AUTO) 0.1 % (0-1); EOSINOPHILS % (AUTO) 0.1 % (0-6); HEMATOCRIT 38.9 % (42.0-52.0); HEMOGLOBIN 12.6 g/dl (14.0-17.9); LYMPHOCYTES # (AUTO) 1.5 X10'3 (1.1-4.8); LYMPHOCYTES % (AUTO) 8.3 % (21-51); MEAN CORPUSCULAR HEMOGLOBIN 30.2 PG (27.0-31.0); MEAN CORPUSCULAR HGB CONC 32.5 g/dL (33.0-36.5); MEAN CORPUSCULAR VOLUME 92.9 FL (78-98); MONOCYTES # (AUTO) 0.8 X10'3 (0-0.9); MONOCYTES % (AUTO) 4.6 % (2-12); NEUTROPHILS # (AUTO) 15.3 X10'3 (1.8-7.7); NEUTROPHILS % (AUTO) 86.9 % (42-75); PLATELET COUNT 394 X10'3 (140-440); RED BLOOD COUNT 4.19 X10'6 (4.70-6.10); RED CELL DISTRIBUTION WIDTH 14.6 % (11.5-14.5); WHITE BLOOD COUNT 17.6 X10'3 (4.5-11.0)
[2020-07-23 02:49] LABS: ALANINE AMINOTRANSFERASE 49 U/L (12-78); ALBUMIN 2.6 G/DL (3.4-5.0); ALBUMIN/GLOBULIN RATIO 0.7 (1.1-1.5); ALKALINE PHOSPHATASE 64 IU/L (46-116); ANION GAP 11 (8-16); ASPARTATE AMINO TRANSFERASE 14 U/L (10-37); BILIRUBIN,TOTAL 0.5 MG/DL (0.1-1.0); BLOOD UREA NITROGEN 18 MG/DL (7-18); CALCIUM 8.6 MG/DL (8.5-10.1); CHLORIDE 100 MMOL/L (99-107); CREATININE 0.58 MG/DL (0.60-1.10); GLUCOSE 259 MG/DL (70-104); MAGNESIUM 1.8 MG/DL (1.5-2.4); POTASSIUM 3.9 MMOL/L (3.5-5.1); SODIUM 134 MMOL/L (135-145); TOTAL CARBON DIOXIDE 23.1 MMOL/L (24-32); TOTAL PROTEIN 6.4 G/DL (6.4-8.2); eGFR > 90 ML/MIN
[2020-07-23] MEDS: propofol 1000mg/100ml bottle 100 ML IV SCH ×5 (02:54→16:16)
[2020-07-23] MEDS: ipratropium/albuterol 3ml nebule NEB SCH ×6 (03:20→23:14)
[2020-07-23 04:26] LABS: TOTAL CELLS COUNTED 100
[2020-07-23 04:28] LABS: LARGE PLATELETS FEW; PLATELET ESTIMATE NORMAL
[2020-07-23] MEDS: FENTANYL-0.9 % NACL/PF 100 ML IV PRN (04:54)
[2020-07-23] MEDS: nystatin 500,000 unit/5ML UD oral suspension NG SCH ×5 (06:00→22:32)
--- NOTE | 2020-07-23 06:32 | NUR ---
Problems reprioritized. Patient report given, questions answered & plan of care reviewed with Chester RUIZ.
[2020-07-23] MEDS: enoxaparin 40mg/0.4ml syringe SUBCUT SCH (09:28)
[2020-07-23] MEDS: ciprofloxacin 250mg tablet NG SCH ×2 (09:29→20:58)
[2020-07-23] MEDS: chlordiazePOXIDE 5mg capsule NG SCH ×2 (09:29→19:47)
[2020-07-23] MEDS: docusate sodium 100mg/10ml UD cup NG SCH ×2 (09:29→19:46)
[2020-07-23] MEDS: aspirin 81mg tab.chew NG SCH (09:29)
[2020-07-23] MEDS: spironolactone 25 MG tablet PO SCH ×2 (09:30→19:48)
[2020-07-23] MEDS: NORMAL SALINE IV SCH (09:31)
[2020-07-23] MEDS: TOBRAMYCIN IV SCH (09:31)
[2020-07-23] MEDS: lactobacillus rhamnosus 10,000 MMU CELLS/CAPSULE NG SCH ×2 (09:31→19:46)
[2020-07-23] MEDS: methylPREDNISolone sod succ/PF 40mg inj. IV SCH ×2 (09:32→19:49)
[2020-07-23] MEDS: furosemide 40mg/4ml inj IV SCH (09:33)
[2020-07-23] MEDS: pantoprazole 40 MG vial IV SCH (09:33)
[2020-07-23] MEDS: Dextrose 10%-water IV solution 1,000 ML IV SCH ×2 (09:34→22:26)
[2020-07-23] MEDS: K and/or MAG REPLACEMENT MC SCH ×2 (09:34→20:00)
--- NOTE | 2020-07-23 18:15 | NUR ---
Patient in room CICU 2008. I have received report from Chester RUIZ and had the opportunity to ask questions and assume patient care. Patient on restless on ventilator. Propofol, precedex and fentanyl infusing. He wants to speak constantly but is hard to understand. RR is set at 24 and he is saturating in the high 90's. All others VS are WNL. Will continue to monitor.
[2020-07-23] MEDS: risperiDONE 0.5mg tablet NG SCH (20:43)
[2020-07-23] MEDS: insulin glargine (Lantus) pen - multi-dose SQ SCH (22:48)
[2020-07-24] VITALS (13 sets, daily range): BP systolic 80–104; BP diastolic 55–67
[2020-07-24] MEDS: FENTANYL-0.9 % NACL/PF 100 ML IV PRN ×2 (01:00→12:38)
[2020-07-24] MEDS: mineral oil/petrolatum ophthal oint EACHEYE SCH ×2 (01:51→07:33)
[2020-07-24] MEDS: dexmedetomidine/D5W 100mL 100 ML IV SCH ×3 (01:52→10:21)
[2020-07-24] MEDS: propofol 1000mg/100ml bottle 100 ML IV SCH ×2 (02:17→07:34)
[2020-07-24] MEDS: insulin regular, human U-100 3ml vial - multi-dose SQ SCH ×2 (02:46→08:05)
[2020-07-24 03:02] LABS: BASOPHILS # (AUTO) 0.1 X10'3 (0-0.2); BASOPHILS % (AUTO) 0.4 % (0-1); EOSINOPHILS % (AUTO) 0.1 % (0-6); HEMATOCRIT 35.6 % (42.0-52.0); HEMOGLOBIN 12.1 g/dl (14.0-17.9); LYMPHOCYTES # (AUTO) 1.8 X10'3 (1.1-4.8); LYMPHOCYTES % (AUTO) 11.2 % (21-51); MEAN CORPUSCULAR HEMOGLOBIN 31.6 PG (27.0-31.0); MEAN CORPUSCULAR HGB CONC 33.9 g/dL (33.0-36.5); MEAN CORPUSCULAR VOLUME 93.2 FL (78-98); MEAN PLATELET VOLUME 7.8 FL (7.4-10.4); MONOCYTES # (AUTO) 0.8 X10'3 (0-0.9); MONOCYTES % (AUTO) 4.9 % (2-12); NEUTROPHILS # (AUTO) 13.6 X10'3 (1.8-7.7); NEUTROPHILS % (AUTO) 83.4 % (42-75); PLATELET COUNT 370 X10'3 (140-440); RED BLOOD COUNT 3.82 X10'6 (4.70-6.10); RED CELL DISTRIBUTION WIDTH 14.3 % (11.5-14.5); WHITE BLOOD COUNT 16.3 X10'3 (4.5-11.0)
[2020-07-24] MEDS: ipratropium/albuterol 3ml nebule NEB SCH ×3 (03:11→11:41)
[2020-07-24 03:17] LABS: ALANINE AMINOTRANSFERASE 53 U/L (12-78); ALBUMIN 2.5 G/DL (3.4-5.0); ALBUMIN/GLOBULIN RATIO 0.6 (1.1-1.5); ALKALINE PHOSPHATASE 62 IU/L (46-116); ANION GAP 9 (8-16); ASPARTATE AMINO TRANSFERASE 10 U/L (10-37); BILIRUBIN,TOTAL 0.5 MG/DL (0.1-1.0); BLOOD UREA NITROGEN 20 MG/DL (7-18); BUN/CREATININE RATIO 34.5 (5.4-32.0); CHLORIDE 104 MMOL/L (99-107); CREATININE 0.58 MG/DL (0.60-1.10); GLUCOSE 216 MG/DL (70-104); MAGNESIUM 1.9 MG/DL (1.5-2.4); POTASSIUM 3.8 MMOL/L (3.5-5.1); PREALBUMIN 40.7 MG/DL (19-36); SODIUM 139 MMOL/L (135-145); TOTAL CARBON DIOXIDE 26.4 MMOL/L (24-32); TOTAL PROTEIN 6.4 G/DL (6.4-8.2); eGFR > 90 ML/MIN
[2020-07-24 04:25] LABS: LARGE PLATELETS FEW; PLATELET ESTIMATE NORMAL; TOTAL CELLS COUNTED 100
[2020-07-24 04:27] LABS: TEAR DROP CELLS FEW
--- NOTE | 2020-07-24 06:42 | NUR ---
Problems reprioritized. Patient report given, questions answered & plan of care reviewed with Toy RUIZ.
[2020-07-24] MEDS: ciprofloxacin 250mg tablet NG SCH (07:31)
[2020-07-24] MEDS: aspirin 81mg tab.chew NG SCH (07:31)
[2020-07-24] MEDS: docusate sodium 100mg/10ml UD cup NG SCH (07:31)
[2020-07-24] MEDS: pantoprazole 40 MG vial IV SCH (07:31)
[2020-07-24] MEDS: methylPREDNISolone sod succ/PF 40mg inj. IV SCH (07:31)
[2020-07-24] MEDS: nystatin 500,000 unit/5ML UD oral suspension NG SCH ×2 (07:31→10:29)
[2020-07-24] MEDS: lactobacillus rhamnosus 10,000 MMU CELLS/CAPSULE NG SCH (07:32)
[2020-07-24] MEDS: chlordiazePOXIDE 5mg capsule NG SCH (07:32)
[2020-07-24] MEDS: enoxaparin 40mg/0.4ml syringe SUBCUT SCH (07:41)
[2020-07-24] MEDS: furosemide 40mg/4ml inj IV SCH (08:00)
[2020-07-24] MEDS: spironolactone 25 MG tablet PO SCH (08:00)
[2020-07-24] MEDS: K and/or MAG REPLACEMENT MC SCH (08:00)
[2020-07-24 09:09] LABS: C DIFF ANTIGEN NEGATIVE (NEGATIVE); C DIFF SPECIMEN=DIARRHEA? ACCEPTABLE; C DIFFICILE TOXINS A&B NEGATIVE (Neg)
[2020-07-24] MEDS: TOBRAMYCIN IV SCH (09:21)
[2020-07-24] MEDS: NORMAL SALINE IV SCH (09:21)
--- NOTE | 2020-07-24 12:16 | NUR ---
report called to Lisa RUIZ at [facility]. at bedside notified about patient picker and packer time of 12:30.
--- NOTE | 2020-07-24 12:55 | NUR ---
pt transferred to [facility], detached from Ventilator and Twyla RN bedside marketing operations manager with patient. Patient left via [facility].
== END 2020-07-24 13:47 | DRG 870 ==
LOC: ER 18:42 → ED HOLD 19:56 → CICU 2S 23:46
PROVIDERS: ADMIT Internal Medicine Critical Care Medicine; ATTEND Internal Medicine Critical Care Medicine
PROC: 5A1955Z Respiratory Ventilation, Greater than 96 Consecutive Hours (ICD-10-PCS; 2020-07-10)
PROC: 0DH63UZ Insertion of Feeding Device into Stomach, Percutaneous Approach (ICD-10-PCS; principal; 2020-07-22)
DX: A41.89 Other specified sepsis (principal); U07.1 COVID-19; J12.89 Other viral pneumonia; J15.1 Pneumonia due to Pseudomonas; J96.20 Acute and chronic respiratory failure, unspecified whether with hypoxia or hypercapnia; K56.7 Ileus, unspecified; E87.2 Acidosis; Z79.899 Other long term (current) drug therapy; Z93.0 Tracheostomy status
CPT/HCPCS: 36415; 36600; 49440; 71045; 71250; 71275; 74018; 74177; 80048; 80053; 80202; 80305; 81001; 82803; 82948; 83036; 83605; 83735; 83880; 84100; 84134; 84145; 84478; 84484; 85007; 85018; 85025; 85610; 85730; 86140; 86703; 87040; 87070; 87077; 87081; 87088; 87186; 87324; 87449; 92508; 92616; 93005; 94002; 94003; 94640; 94760; 94799; 96374; 96375; 97110; 97161; 97530; 97535; 99285; B4087; C1713; C9113; G0378; J1610; J1650; J1815; J1940; J2020; J2185; J2250; J2704; J2920; J2930; J3010; J3260; J3370; J3475; J3480; J3490; J7030; J7060; J8540; Q9963; Q9967